=== PATIENT | male | born 1945 | race Caucasian/White ===

== ENCOUNTER 2017-02-26 10:16 | Emergency (ER) | payer MEDICARE, OTHER ==
[2017-02-26 10:24] VITALS: BP 121/75; PULSE 50; RESP 18; TEMP 97.7
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
[2017-02-28 11:51] LABS: Lyme IgG/IgM 0.6 Index; Lyme IgG/IgM Interp NEGATIVE (NEGATIVE)
== END 2017-02-26 11:00 | disposition home or self-care (01) ==
LOC: EC 10:16
DX: S30.861A Insect bite (nonvenomous) of abdominal wall, initial encounter (principal); S80.869A Insect bite (nonvenomous), unspecified lower leg, initial encounter; I25.10 Atherosclerotic heart disease of native coronary artery without angina pectoris; E78.5 Hyperlipidemia, unspecified; I10 Essential (primary) hypertension; Z86.718 Personal history of other venous thrombosis and embolism; Z88.5 Allergy status to narcotic agent; Z79.82 Long term (current) use of aspirin; Z79.899 Other long term (current) drug therapy; Z87.891 Personal history of nicotine dependence; W57.XXXA Bitten or stung by nonvenomous insect and other nonvenomous arthropods, initial encounter
CPT/HCPCS: 36415; 86618; 99283

== ENCOUNTER → 2017-12-28 | Outpatient (CLI) | payer MEDICARE, OTHER ==
--- NOTE | 2017-12-28 14:56 | CONS ---
CONSULTATION DATE OF SERVICE: 12/28/2017 A 72-year-old gentleman who has been evaluated in the Sleep Center for possible obstructive sleep apnea-hypopnea syndrome. HISTORY OF PRESENT ILLNESS/SLEEP WAKE EVALUATION: Patient usually goes to bed late around 2 a.m. and sleeps until around 10 a.m. No problems with falling asleep, although he has TV set in bedroom. He usually sleeps on the side position. According to his . He has loud snoring and witnessed episodes of stopped breathing for more than 10 years. He wakes up from sleep several times with 2 episodes of nocturia. In the morning he wakes up tired, sometimes feels sleepiness. [place] Sleepiness Scale is 5, but he takes naps up to 3 times per day at 1 pm, 4 pm at around 8 pm. PAST MEDICAL HISTORY: Positive for hypertension, episodes of anxiety, coronary artery disease, hyperlipidemia, epilepsy, last episodes of grand mal seizures about 7 years ago after sclerosis of the femoral arteries. PAST SURGICAL HISTORY: Three stent insertions to the heart, stent insertion to renal artery, hernia repair, several surgeries for arteriosclerosis of femoral artery, bypass surgery to move the femoral artery of both legs. MEDICATIONS: Alprazolam, aspirin, atenolol, atorvastatin, clopidogrel, colchicine, doxazosin, nitroglycerin, pantoprazole, paroxetine, , sildenafil, if necessary. SOCIAL HISTORY: Positive for smoking for about 40-pack years, quit about 14 years ago. Alcohol consumption none at the present time. REVIEW OF SYSTEMS: Awakenings from sleep, sleepiness during the day. PHYSICAL EXAM: gentleman without distress. BP 128/74, HR 52, RR 16, height 5, 6-3/4 inches, weight 194.2, BMI of 30.6, temperature 97.7, oxygen saturation room air 95%. OROPHARYNX: Moderately low position of soft palate in short distance between soft palate and posterior pharyngeal wall. Neck 16 inches in circumference. ABDOMEN: Slightly obese. Neck Supple, no JVD. Thyroid is not palpable. LUNGS Clear to percussion and to auscultation. Good air exchange. No wheezing or rhonchi. HEART S1, S2 regular. No murmurs, gallops, or rubs. EXTREMITIES No clubbing or cyanosis. 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 Cranial nerves 2 to 7 intact. There is no fasciculation or atrophy. noted. No focal deficits observed. IMPRESSION: 1. Snoring, witnessed episodes of stopped breathing during the sleep, multiple awakenings from sleep, sleepiness during the day. Patient takes 3 or 4 naps a day. Wide neck, obstructive sleep apnea-hypopnea syndrome. 2. Mild obesity, body mass index of 30.6. 3. \Coronary artery disease, status post several stent insertions. 4. Arthrosclerosis of femoral arteries, status post bypass surgeries and several surgeries on femoral arteries. 5. Hypertension. 6. Hyperlipidemia. 7. Anxiety. 8. History of epilepsy with grand mal seizures, last episode 7 years ago. 9. Gout. 10.Benign prostatic hypertrophy. 11.History of chronic glomerulonephritis. PLAN: 1. Polysomnography for evaluation of patient's breathing during sleep. 2. CPAP/BiPAP titration if sleep study confirms obstructive sleep apnea-hypopnea syndrome. 3. Preferable position during sleep on the side. 4. No driving if patient feels any sleepiness. 5. I will see patient for follow up visit to explain results of testing and following plan. Thank you very much for referring this patient for consultation. Sincerely, Ti Linder MD, PhD, FAASM Diplomat of [employer] Lead Painter of [facility] [place] MMODL / GERIN: [id number] /
== END | disposition home or self-care (01) ==
LOC: SLEEP 11:20
PROVIDERS: ATTEND Internal Medicine
DX: G47.33 Obstructive sleep apnea (adult) (pediatric) (principal); E66.9 Obesity, unspecified; I25.10 Atherosclerotic heart disease of native coronary artery without angina pectoris; I70.219 Atherosclerosis of native arteries of extremities with intermittent claudication, unspecified extremity; I10 Essential (primary) hypertension; E78.5 Hyperlipidemia, unspecified; F41.9 Anxiety disorder, unspecified; M10.9 Gout, unspecified; N40.0 Benign prostatic hyperplasia without lower urinary tract symptoms; N03.9 Chronic nephritic syndrome with unspecified morphologic changes; Z68.30 Body mass index [BMI] 30.0-30.9, adult; Z95.1 Presence of aortocoronary bypass graft; Z86.69 Personal history of other diseases of the nervous system and sense organs; Z95.5 Presence of coronary angioplasty implant and graft; Z79.82 Long term (current) use of aspirin; Z79.02 Long term (current) use of antithrombotics/antiplatelets; Z79.899 Other long term (current) drug therapy; Z87.891 Personal history of nicotine dependence
CPT/HCPCS: 99211

== ENCOUNTER → 2018-04-12 | Outpatient (CLI) | payer MEDICARE, OTHER ==
--- NOTE | 2018-04-12 12:46 | SFUN ---
SLEEP CENTER FOLLOW UP NOTE DATE OF SERVICE: 04/12/2018 A 73-year-old gentleman who had been followed in sleep center to discuss results of polysomnogram and following plan. We discussed results of the sleep study with the patient in details. Sleep study did not show any significant respiratory abnormalities during the sleep. Total apnea- hypopnea index is 3.2, which is in normal range. Total oxygen level was below normal for 1.8 minutes, which is also considered to be in normal range. EMG showed 97.3 periodic limb movements per hour with 6.2 microarousals per hour. According to the patient's , he has significant amount of leg movements at home while he is asleep. [place] Sleepiness Scale today is 8. MEDICATIONS: Xanax, aspirin, atenolol, Lipitor, Plavix, colchicine, Cardura, [place], Nitrostat, Protonix, Paxil, Dilantin . PHYSICAL EXAMINATION: During physical exam, patient in no distress. VITAL SIGNS: BP 138/87, HR 60, RR 16, weight 184.6, temperature 99.1, oxygen saturation room air 95%. NECK: Supple, no JVD. Thyroid is not palpable. LUNGS: Clear to percussion and to auscultation. Good air exchange. No wheezing or rhonchi. HEART: S1, S2 regular. No murmurs, gallops, or rubs. ABDOMEN: Soft and nontender. Bowel sounds are present. No organomegaly appreciated. EXTREMITIES: No clubbing or cyanosis. HAIR WEAVER: Awake, alert, and oriented X3. Cranial nerves 2 to 7 intact. There is no fasciculation or atrophy. noted. No focal deficits observed. IMPRESSION: 1. No significant respiratory abnormalities during the sleep study. 2. Severe periodic limb movements have been documented. 3. Atherosclerosis of femoral artery, status post bypass surgery. 4. Coronary artery disease, status post stent insertion. 5. Hyperlipidemia. 6. Hypertension. 7. History of anxiety. 8. History of epilepsy with grand mal seizures, last episode 7 years ago. 9. History of gout. 10.Benign prostatic hypertrophy. 11.History of chronic glomerulonephritis. PLAN: 1. Please check iron profile with ferritin level. Low level of iron increases risk for periodic limb movements. 2. The patient will start taking Mirapex 0.125 mg 1 or 2 tablets at bedtime with a goal to prevent periodic limb movements. 3. No driving if feeling any sleepiness. 4. Preferable position during the sleep on the side. Thank you very much for allowing me to participate in management of your patient. Sincerely, Ti Linder MD, PhD, FAASM Diplomat of [employer] Process Mechanic of [facility] [place] MMODL / IJN: [id number] /
== END ==
LOC: SLEEP 11:30
PROVIDERS: ATTEND Internal Medicine
DX: G47.61 Periodic limb movement disorder (principal); I70.8 Atherosclerosis of other arteries; I25.10 Atherosclerotic heart disease of native coronary artery without angina pectoris; Z95.5 Presence of coronary angioplasty implant and graft; E78.5 Hyperlipidemia, unspecified; I10 Essential (primary) hypertension; F41.9 Anxiety disorder, unspecified; R56.9 Unspecified convulsions; G40.909 Epilepsy, unspecified, not intractable, without status epilepticus; M10.9 Gout, unspecified; N40.0 Benign prostatic hyperplasia without lower urinary tract symptoms; N05.9 Unspecified nephritic syndrome with unspecified morphologic changes; Z79.899 Other long term (current) drug therapy; Z79.82 Long term (current) use of aspirin; Z79.891 Long term (current) use of opiate analgesic

== ENCOUNTER → 2019-03-05 | Outpatient (CLI) | payer MEDICARE, OTHER ==
--- NOTE | 2019-03-05 15:28 | XR ---
EXAM TYPE: LUMBAR SPINE X RAY SERIES COMPARISON: NONE HISTORY: Pain TECHNIQUE: 3 views are submitted. FINDINGS: Alignment is anatomic. The pedicles are intact. The transverse processes are intact. There is no s pondylolysis or spondylolisthesis. There is a vascular stent which may be within the renal artery ov erlying the L1-L2 disc interspace correlate clinically. Atherosclerotic changes seen. Hypertrophic an d degenerative change of the spine. IMPRESSION: 1. Multilevel degenerative disc disease and hypertrophic changes. 2. Correlate for history of vascular stent..
== END | disposition home or self-care (01) ==
LOC: RADXRMAIN 14:48
PROVIDERS: ATTEND Internal Medicine Geriatric Medicine
DX: M51.36 Other intervertebral disc degeneration, lumbar region (principal)
CPT/HCPCS: 72100

== ENCOUNTER 2020-06-08 12:31 | Inpatient (IN) | payer OTHER, MEDICARE ==
[2020-06-08] MEDS ORDERED: SODIUM CHLORIDE 0.9% 1,000 ML IV STA (12:38)
[2020-06-08] MEDS ORDERED: HYDROmorphone 0.5 MG/0.5 ML SYRINGE IVP STA (12:38)
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
--- NOTE | 2020-06-08 12:57 | XR ---
AP pelvis HISTORY: Trauma and pain Single frontal view of the pelvis Metallic density and clips in the right, clips present in the left groin. Dense atherosclerotic calci fications are present. Bone mineralization, joint spaces and alignment are maintained. Degenerative d isc changes are present in the visualized lumbar spine. IMPRESSION: No fracture or dislocation.
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
[2020-06-08 13:06] LABS: Basophils % (A) 1 %; Eosinophils # (A) 0.1 k/uL (0-0.7); Eosinophils % (A) 2 %; HCT 44.9 % (39.0-53.0); HGB 15.2 gm/dL (13.0-17.5); Lymphocytes # (A) 1.8 k/uL (1.0-4.8); Lymphocytes % (A) 28 %; MCH 33.4 pg (25.0-35.0); MCV 98.1 fL (80.0-100.0); Mean Platelet Volume 6.9; Monocytes # (A) 0.3 k/uL (0-1.0); Monocytes % (A) 5 %; Neutrophils # (A) 4.1 k/uL (1.3-7.7); Neutrophils % (A) 63 %; Platelet Count 118 k/uL (150-450); RBC 4.57 m/uL (4.30-5.90); RDW 13.2 % (11.5-15.5); WBC 6.6 k/uL (3.8-10.6)
[2020-06-08 13:17] LABS: ALT 38 U/L (4-49); AST 48 U/L (17-59); African American GFR (CKD) 49 (>60 ml/min/1.73 sqM); Albumin 4.8 g/dL (3.5-5.0); Alcohol <10 mg/dL; Alkaline Phosphatase 88 U/L (38-126); Anion Gap 10 mmol/L; Blood Urea Nitrogen 17 mg/dL (9-20); Calcium 9.5 mg/dL (8.4-10.2); Carbon Dioxide 21 mmol/L (22-30); Chloride 106 mmol/L (98-107); Glucose 118 mg/dL (74-99); Non-African American GFR(CKD) 42 (>60 ml/min/1.73 sqM); Potassium 4.2 mmol/L (3.5-5.1); Sodium 137 mmol/L (137-145); Total Bilirubin 1.3 mg/dL (0.2-1.3); Total Protein 7.6 g/dL (6.3-8.2)
[2020-06-08 13:23] LABS: Prothrombin Time 10.1 sec (9.0-12.0)
[2020-06-08 13:24] LABS: Partial Thromboplastin Time 18.2 sec (22.0-30.0)
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
[2020-06-08] MEDS ORDERED: NALOXONE 0.4 MG/ML 1 ML VIAL IV PRN (14:21)
[2020-06-08] MEDS ORDERED: BACLOFEN 10 MG TAB PO PRN (18:47)
[2020-06-08] MEDS: HYDROcodone/APAP 5-325MG 1 EACH TAB PO PRN (19:27)
[2020-06-08] MEDS: ATORVASTATIN 40 MG TAB PO SCH (19:30)
[2020-06-08] MEDS: DOXAZOSIN 2 MG TAB PO SCH (19:31)
[2020-06-08] MEDS: PANTOPRAZOLE 40 MG TABLET PO SCH (20:03)
[2020-06-08] MEDS: levETIRAcetam 500 MG TAB PO SCH (20:03)
[2020-06-09] MEDS: HYDROcodone/APAP 5-325MG 1 EACH TAB PO PRN ×2 (06:22→16:24)
[2020-06-09] MEDS: PANTOPRAZOLE 40 MG TABLET PO SCH (07:28)
[2020-06-09] MEDS ORDERED: PANTOPRAZOLE 40 MG TABLET PO SCH (07:30)
[2020-06-09] MEDS: ASPIRIN 81 MG PO SCH (08:48)
[2020-06-09] MEDS: atenoloL 25 MG TAB PO SCH (08:48)
[2020-06-09] MEDS: PARoxetine 20 MG TAB PO SCH (08:48)
[2020-06-09] MEDS: levETIRAcetam 500 MG TAB PO SCH ×2 (08:48→21:04)
[2020-06-09] MEDS: allopurinoL 100 MG TAB PO SCH (08:48)
[2020-06-09] MEDS ORDERED: ERGOCALCIFEROL 50,000 UNIT CAP PO SCH (09:00)
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
--- NOTE | 2020-06-09 09:46 | US ---
EXAMINATION TYPE: US carotid duplex BILAT DATE OF EXAM: 06/09/2020 COMPARISON: NONE CLINICAL HISTORY: syncope. Patient states passing out. HTN. No hx TIA. EXAM MEASUREMENTS: RIGHT: Peak Systolic Velocity (PSV) cm/sec ----- Right CCA: 46.2 ----- Right ICA: 62.5 ----- Right ECA: 92.4 ICA/CCA ratio: 1.4 RIGHT: End Diastole cm/sec ----- Right CCA: 13.9 ----- Right ICA: 23.0 ----- Right ECA: 8.4 LEFT: Peak Systolic Velocity (PSV) cm/sec ----- Left CCA: 40.5 ----- Left ICA: 108.1 ----- Left ECA: 96.9 ICA/CCA ratio: 2.7 LEFT: End Diastole cm/sec ----- Left CCA: 9.2 ----- Left ICA: 33.8 ----- Left ECA: 16.7 VERTEBRALS (direction of flow): Right Vertebral: Antegrade Left Vertebral: Antegrade Rhythm: Normal Wall thickening. Plaque visualized in bilateral bulb, ICA and ECA. IMPRESSION: 1. Left ICA/CCA ratio suggests hemodynamically significant stenosis of 50-69%. 2. No hemodynamically significant stenosis on the right. Any stenosis that may be present is less marlyn n 50%. 3. Atherosclerotic disease bilaterally. Criteria for Assigning % of Stenosis / Diameter reduction (Estimation based on the indirect measurements of the internal carotid artery velocities (ICA PSV). 1. Normal (no stenosis)=ICA PSV < 125 cm/s: ratio < 2.0: ICA EDV<40 cm/s. 2. Less than 50% stenosis=ICA PSV < 125 cm/s: ratio < 2.0: ICA EDV<40 cm/s. 3. 50 to 69% stenosis=ICA PSV of 125 to 230 cm/s: ration 2.0 ? 4.0: ICA EDV 40-100 cm/s. 4. Greater than 70% stenosis to near occlusion= ICA PSV > 230 cm/s: ratio > 4.0: ICA EDV > 100 cm/s. 5. Near occlusion= ICA PSV velocities may be low or undetectable: variable ratio and ICA EDV. 6. Total occlusion=unable to detect flow.
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
--- NOTE | 2020-06-09 12:00 | ECHOF ---
Referral Reason:LVF MEASUREMENTS -------- HEIGHT: 172.7 cm WEIGHT: 81.6 kg BP: IVSd: 1.2 cm (0.6 - 1.1) LVIDd: 4.3 cm (3.9 - 5.3) LVPWd: 1.4 cm (0.6 - 1.1) IVSs: 1.8 cm LVIDs: 2.7 cm LVPWs: 1.6 cm LAESV Index (A-L): 10.33 ml/m Ao Diam: 3.2 cm (2.0 - 3.7) AV Cusp: 1.8 cm (1.5 - 2.6) LA Diam: 2.9 cm (2.7 - 3.8) MV EXCURSION: 17.007 mm (> 18.000) MV EF SLOPE: 57 mm/s (70 - 150) EPSS: 1.2 cm MV E Rangel: 0.65 m/s MV DecT: 220 ms MV A Rangel: 0.75 m/s MV E/A Ratio: 0.86 RAP: 5.00 mmHg RVSP: 13.29 mmHg FINDINGS -------- This was a technically good study. The left ventricular size is normal. There is mild concentric left ventricular hypertrophy. Overa ll left ventricular systolic function is normal with, an EF between 55 - 60 %. The diastolic fillin g pattern is normal for the age of the patient 13.. The right ventricle is normal in size. The left atrial size is normal. The right atrial size is normal. The aortic valve is trileaflet and appears structurally normal. The mitral valve is normal. The mitral valve leaflets are mildly thickened. Mild mitral annular c alcification present. The tricuspid valve appears structurally normal. Mild tricuspid regurgitation present. Right vent ricular systolic pressure is normal at < 35 mmHg. There is no pulmonic regurgitation present. The aortic root size is normal. Normal inferior vena cava with normal inspiratory collapse consistent with estimated right atrial pre ssure of 5 mmHg. There is no pericardial effusion. CONCLUSIONS -------- 1. The left ventricular size is normal. 2. There is mild concentric left ventricular hypertrophy. 3. Overall left ventricular systolic function is normal with, an EF between 55 - 60 %. 4. The diastolic filling pattern is normal for the [age] of the patient 13.94 5. The mitral valve leaflets are mildly thickened. 6. Mild mitral annular calcification present. 7. Mild tricuspid regurgitation present. 8. There is no pericardial effusion. SUPERVISOR [employer]ABRICATION AND [employer]SEMBLY: Maria Eugenia Daily RDCS
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
--- NOTE | 2020-06-09 14:04 | P.PAINCN ---
History of Present Illness - Reason for Consult Consult date: 06/09/20 - History of Present Illness this is 75 years old male,was admitted to [facility] after he fell off the ladder,and patient had right side Rib fracture,and patient was complaining of severe chest wall pain, chest x-ray and CAT scan of the chest showed that he had right-sided seventh rib fractures, but there is no evidence of hemothorax patient was complaining of severe chest pain and he was started on [place] Lancey 5/325 every 6 hours when necessary Past Medical History Past Medical History: Coronary Artery Disease (CAD), Deep Vein Thrombosis (DVT), Hyperlipidemia, Hypertension, Renal Disease, Seizure Disorder Additional Past Medical History / Comment(s): PAD History of Any Multi-Drug Resistant Organisms: None Reported Past Surgical History: Appendectomy, Heart Catheterization With Stent, Joint Replacement, Orthopedic Surgery Additional Past Surgical History / Comment(s): kidney stents, fem-popx2, hydrocele surgery Past Anesthesia/Blood Transfusion Reactions: No Reported Reaction Date of Last Stent Placement:: 2012 Past Psychological History: No Psychological Hx Reported Smoking Status: Never smoker Past Alcohol Use History: Occasional Past Drug Use History: None Reported Medications and Allergies Home Medications Medication Instructions Recorded Confirmed Type Aspirin 81 mg PO DAILY 01/14/15 06/08/20 History Doxazosin [Cardura] 2 mg PO HS 01/14/15 06/08/20 History Hydrocodone/Acetaminophen [De Lancey 1 tab PO BID PRN 01/14/15 06/08/20 History 5-325] Pantoprazole Sodium 20 mg PO DAILY 01/14/15 06/08/20 History atenoloL [Tenormin] 25 mg PO DAILY 01/14/15 06/08/20 History allopurinoL [Zyloprim] 100 mg PO DAILY 09/08/15 06/08/20 History Atorvastatin [Lipitor] 40 mg PO HS 06/08/20 06/08/20 History Baclofen 10 mg PO BID PRN 06/08/20 06/08/20 History Ergocalciferol [Vitamin D2] 50,000 unit PO Q7D 06/08/20 06/08/20 History PARoxetine HCL [Paxil] 20 mg PO DAILY 06/08/20 06/08/20 History Sildenafil Citrate 100 mg PO DAILY PRN 06/08/20 06/08/20 History levETIRAcetam [Keppra] 500 mg PO BID 06/08/20 06/08/20 History Allergies Allergy/AdvReac Type Severity Reaction Status Date / Time meperidine HCl [From Demerol] AdvReac Nausea & Verified 06/09/20 00:29 Vomiting Physical Exam Vitals: Vital Signs Temp Pulse Pulse Pulse Pulse Pulse Resp 06/09/20 12:10 50 L 62 51 L 18 06/09/20 09:00 96.3 F L 92 19 06/09/20 08:09 06/09/20 03:00 98.5 F 104 H 18 06/08/20 21:00 98.3 F 115 H 17 06/08/20 16:35 98.3 F 116 H 18 06/08/20 15:45 98.6 F 72 18 06/08/20 15:00 98.3 F 116 H 18 BP BP BP BP BP Pulse Ox 06/09/20 12:10 125/76 101/68 130/72 06/09/20 09:00 120/74 92 L 06/09/20 08:09 95 06/09/20 03:00 128/86 94 L 06/08/20 21:00 136/91 95 06/08/20 16:35 157/94 94 L 06/08/20 15:45 128/92 98 06/08/20 15:00 157/94 94 L Intake and Output 06/08/20 06/09/20 06/09/20 22:59 06:59 14:59 Intake Total 700 Output Total 1650 Balance 700 -1650 Intake: Intake, IV Titration 100 Amount Sodium Chloride 0.9% 1, 100 000 ml @ 100 mls/hr IV . Q10H STA Rx#:[id number] Oral 600 Output: Urine 1650 Other: Voiding Method Urinal Urinal # Voids 1 1 Weight 81.647 kg Physical Examinations : -Constitutiona : Cooperative , not in acute distress . -HEENT : nech : supple , no Lymphadenopathy , normal thyroid size . : eyes : no ptosis , no icterus, no photophobia . : ENT : normal of hearing , normal oropharynx , no Thrush . - Respiratory : Chest clear to auscultations Bilaterally , no wheezing , no Rhonchi . tenderness over the right side of the chest - Cardiovascula : regular rate and rhythem , S1 , S2 , no S3 , no S4. - Gastrointestina : abdomen soft no tenderness , bowel sounds , no organomegally . - Genitourinary : Defferred . - neurologic : Cranial nerve II to XII intact , no focal neurological deffecit . -psychatric : alert , oriented X 3 , appropriate affect , intact judgment and insight . -Lymphatic : no Lymphadenopathy . - musculoskeltal : Lumber spine moter stegnth lower extremities ,thigh and legs 5/5 Right side , 5/5 Left side Results CBC & Chem 7: 06/08/20 12:51 06/08/20 12:51 Comments: diagnostic study review Assessment and Plan Assessment: assessment and plan=[id number] chest wall pain secondary to right side 7th rib fracture ,she is currently on [place] Lancey 5/325-6 hours when necessary ,and he reported current medication helping him to control his pain, s able to take deep breaths without any issues, he denies any shortness of breath, he denies any difficulty breathing Recommend continue current management and there is no need for thoracic pidural catheter placement, patient doing very well on the current treatment Time with Patient: Less than 30 PQRS Measure Charge Sheet PQRS Narrative: Smoking Status Former smoker Do You Want the Pneumonia Vaccine Up to Date Vaccine AT THIS TIME? Blood Pressure [Standing] 101/68 Blood Pressure [Sitting] 125/76 Blood Pressure [Supine] 130/72 Blood Pressure [Left Arm] 120/74 Blood Pressure 128/92 Pain Intensity [Right 4 Posterior Chest] Pain Intensity 0 Pain Scale Used Numeric (1 - 10) Scale Used Numeric (1 - 10) Home Medications: Ambulatory Orders Aspirin 81 mg PO DAILY 01/14/15 Doxazosin [Cardura] 2 mg PO HS 01/14/15 Hydrocodone/Acetaminophen [[place]y 5-325] 1 tab PO BID PRN 01/14/15 Pantoprazole Sodium 20 mg PO DAILY 01/14/15 atenoloL [Tenormin] 25 mg PO DAILY 01/14/15 allopurinoL [Zyloprim] 100 mg PO DAILY 09/08/15 Atorvastatin [Lipitor] 40 mg PO HS 06/08/20 Baclofen 10 mg PO BID PRN 06/08/20 Ergocalciferol [Vitamin D2] 50,000 unit PO Q7D 06/08/20 PARoxetine HCL [Paxil] 20 mg PO DAILY 06/08/20 Sildenafil Citrate 100 mg PO DAILY PRN 06/08/20 levETIRAcetam [Keppra] 500 mg PO BID 06/08/20
--- NOTE | 2020-06-09 14:23 | XR ---
EXAMINATION TYPE: XR shoulder complete RT DATE OF EXAM: 06/09/2020 CLINICAL HISTORY: Pain status post fall injury yesterday TECHNIQUE: Three views of the right shoulder are obtained. COMPARISON: None. FINDINGS: There is no acute fracture/dislocation evident in the right shoulder. Mild narrowing and s purring at acromioclavicular joint with moderate capsular hypertrophy. Distal acromion morphology un remarkable. Mild/moderate narrowing of glenohumeral joint. The visualized ribs are intact and unremar kable. IMPRESSION: There is no acute fracture or dislocation in the right shoulder.
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
[2020-06-09] MEDS: ATORVASTATIN 40 MG TAB PO SCH (21:04)
[2020-06-09] MEDS: DOXAZOSIN 2 MG TAB PO SCH (21:08)
[2020-06-10] MEDS: HYDROcodone/APAP 5-325MG 1 EACH TAB PO PRN ×2 (02:17→08:17)
[2020-06-10] MEDS: PANTOPRAZOLE 40 MG TABLET PO SCH (07:29)
[2020-06-10] MEDS: atenoloL 25 MG TAB PO SCH (07:29)
[2020-06-10] MEDS: allopurinoL 100 MG TAB PO SCH (07:29)
[2020-06-10] MEDS: ASPIRIN 81 MG PO SCH (07:29)
[2020-06-10] MEDS: levETIRAcetam 500 MG TAB PO SCH (07:29)
[2020-06-10] MEDS: PARoxetine 20 MG TAB PO SCH (07:30)
[2020-06-10 08:29] VITALS: BP 149/70; PULSE 57; RESP 14; TEMP 98
[2020-06-10 08:34] LABS: Basophils # (A) 0.1 k/uL (0-0.2); Basophils % (A) 1 %; Eosinophils # (A) 0.2 k/uL (0-0.7); Eosinophils % (A) 3 %; HCT 43.5 % (39.0-53.0); HGB 14.8 gm/dL (13.0-17.5); Lymphocytes # (A) 2.9 k/uL (1.0-4.8); Lymphocytes % (A) 35 %; MCH 33.8 pg (25.0-35.0); MCHC 34.1 g/dL (31.0-37.0); MCV 99.3 fL (80.0-100.0); Monocytes # (A) 0.5 k/uL (0-1.0); Monocytes % (A) 6 %; Neutrophils # (A) 4.6 k/uL (1.3-7.7); Neutrophils % (A) 54 %; Platelet Count 116 k/uL (150-450); RBC 4.38 m/uL (4.30-5.90); RDW 12.7 % (11.5-15.5); WBC 8.5 k/uL (3.8-10.6)
[2020-06-10 08:49] LABS: Calcium 8.9 mg/dL (8.4-10.2); Potassium 3.8 mmol/L (3.5-5.1)
[2020-06-10] MEDS ORDERED: SENNOSIDES-DOCUSATE SODIUM 1 EACH TAB PO SCH (10:00)
[2020-06-10] MEDS ORDERED: ACETAMINOPHEN TAB 325 MG TAB PO PRN (10:00)
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
== END 2020-06-10 14:02 | disposition home or self-care (01) | DRG 101 ==
LOC: EC 12:31 → 1SOBS 14:21 → OBSVTOIN 06-10 09:35
PROVIDERS: ADMIT Surgery; ATTEND Surgery
DX: G40.909 Epilepsy, unspecified, not intractable, without status epilepticus (principal); F33.9 Major depressive disorder, recurrent, unspecified; J98.11 Atelectasis; N17.9 Acute kidney failure, unspecified; S22.31XA Fracture of one rib, right side, initial encounter for closed fracture; N18.30 Chronic kidney disease, stage 3 unspecified; I95.1 Orthostatic hypotension; I73.9 Peripheral vascular disease, unspecified; E78.5 Hyperlipidemia, unspecified; G89.29 Other chronic pain; I12.9 Hypertensive chronic kidney disease with stage 1 through stage 4 chronic kidney disease, or unspecified chronic kidney disease; I25.10 Atherosclerotic heart disease of native coronary artery without angina pectoris; I65.23 Occlusion and stenosis of bilateral carotid arteries; K44.9 Diaphragmatic hernia without obstruction or gangrene; M1A.9XX0 Chronic gout, unspecified, without tophus (tophi); N40.0 Benign prostatic hyperplasia without lower urinary tract symptoms; M25.511 Pain in right shoulder; M54.9 Dorsalgia, unspecified; N28.1 Cyst of kidney, acquired; I08.1 Rheumatic disorders of both mitral and tricuspid valves; D35.01 Benign neoplasm of right adrenal gland; Z79.82 Long term (current) use of aspirin; Z79.52 Long term (current) use of systemic steroids; Z88.5 Allergy status to narcotic agent; Z95.5 Presence of coronary angioplasty implant and graft; Z87.891 Personal history of nicotine dependence; Z79.899 Other long term (current) drug therapy; Z96.60 Presence of unspecified orthopedic joint implant; Z86.718 Personal history of other venous thrombosis and embolism; Z98.890 Other specified postprocedural states; Z87.448 Personal history of other diseases of urinary system; Z87.898 Personal history of other specified conditions; Z90.49 Acquired absence of other specified parts of digestive tract; Z87.19 Personal history of other diseases of the digestive system; Z80.1 Family history of malignant neoplasm of trachea, bronchus and lung; W11.XXXA Fall on and from ladder, initial encounter; V49.88XA Car occupant (driver) (passenger) injured in other specified transport accidents, initial encounter; Y92.410 Unspecified street and highway as the place of occurrence of the external cause
CPT/HCPCS: 70450; 71045; 71046; 71260; 72125; 72170; 74177; 80048; 80053; 80320; 83525; 84484; 84681; 85025; 85610; 85730; 86850; 86900; 86901; 93005; 93306; 93880; 94760; 95819; 96361; 96374; 99285

== ENCOUNTER → 2021-09-08 | Outpatient (CLI) | payer MEDICARE, OTHER ==
[~2021-09-08] MED LIST: BAMLANIVIMAB (EUA) 700 MG, ETESEVIMAB (EUA) 1,400 MG in SODIUM CHLORIDE 0.9% 100 ML IVPB ONE; SODIUM CHLORIDE 0.9% 50 ML IVPB NR; SODIUM CHLORIDE 0.9% 500 ML 500 ML in EMPTY BAG 1 BAG IV PRN
[2021-09-08 11:40] VITALS: RESP 16; TEMP 98
[2021-09-08 11:42] VITALS: BP 166/73; PULSE 50
== END ==
LOC: PROCWHC3 08:02
PROVIDERS: ATTEND Internal Medicine Geriatric Medicine
DX: U07.1 COVID-19 (principal); Z87.891 Personal history of nicotine dependence; Z88.5 Allergy status to narcotic agent
CPT/HCPCS: 96360; J3490; M0245

== ENCOUNTER → 2021-10-28 | Outpatient (CLI) | payer MEDICARE, OTHER ==
--- NOTE | 2021-10-29 03:28 | MR ---
EXAMINATION TYPE: MR brain wo con DATE OF EXAM: 10/28/2021 COMPARISON: None HISTORY: Dizziness, memory issues, CVA Multiplanar multi echo imaging of the brain without contrast. There is cerebral cortical atrophy. There is no mass effect or midline shift. There is no evidence of intracranial hemorrhage. Diffusion images show no evidence of an acute infarct. There is some mild n odular increased signal in the periventricular white matter measuring up to 1 cm in thickness. This i s concentrated at the frontal and occipital horns of the lateral ventricles. Brainstem is intact. Cer ebellum is intact. There is no evidence of orbital mass. Corpus callosum is intact. Sella turcica jerrod ears normal. IMPRESSION: Cerebral atrophy. White matter signal changes probably related to age-related atrophy and microvascul ar ischemia. Demyelinating disease not excluded but I think less likely in view of the lack of any si gnificant parietal lobe involvement.
== END | disposition home or self-care (01) ==
LOC: RADMRIMAIN 16:39
PROVIDERS: ATTEND Psychiatry & Neurology Neurology
DX: G31.89 Other specified degenerative diseases of nervous system (principal)
CPT/HCPCS: 70551

== ENCOUNTER → 2022-09-02 | Outpatient (CLI) | payer MEDICARE, OTHER ==
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
== END | disposition home or self-care (01) ==
LOC: RADXRMAIN 15:38
PROVIDERS: ATTEND Internal Medicine Geriatric Medicine
DX: R05.9 Cough, unspecified (principal)
CPT/HCPCS: 71046

== ENCOUNTER → 2023-01-06 | Outpatient (CLI) | payer MEDICARE, OTHER ==
--- NOTE | 2023-01-06 10:50 | XR ---
EXAM TYPE: LUMBAR SPINE X RAY SERIES COMPARISON: NONE HISTORY: Pain TECHNIQUE: 4 views are submitted. FINDINGS: Alignment is anatomic. The pedicles are intact. The transverse processes are intact. There is a va scular stent is noted. A linear density overlying left abdomen similar to prior exam of uncertain brandin ology. Correlate for foreign body. Vascular calcifications are seen. There is hypertrophic and degene rative changes of the spine with facet arthropathy L4-5 and L5-S1. No spondylolisthesis. IMPRESSION: 1. Multilevel mild to moderate degenerative disc disease and facet arthropathy. 2. There is a vascular stent overlying the mid abdomen and there is an additional linear 1 x 2 cm den sity in the left upper quadrant which could be related to chronic metallic foreign body.
== END | disposition home or self-care (01) ==
LOC: RADXRMAIN 09:24
PROVIDERS: ATTEND Internal Medicine Geriatric Medicine
DX: M51.36 Other intervertebral disc degeneration, lumbar region (principal); M47.816 Spondylosis without myelopathy or radiculopathy, lumbar region
CPT/HCPCS: 72100

== ENCOUNTER → 2023-07-21 | Outpatient (CLI) | payer MEDICARE, OTHER ==
--- NOTE | 2023-07-21 12:28 | CTL ---
EXAMINATION TYPE: CT Low Dose Lung DATE OF EXAM ORDERED: 07/21/2023 HISTORY: . Lung cancer screening CT DLP: 101.[address] CTDI: 2.70 mGy Automated exposure control for dose reduction was used. SCREENING VISIT: The patient is skeletally immature. COMPARISON: 06/08/2020. TECHNIQUE: Low dose computed tomography scan was performed through the chest at 1 mm thick sections a nd reconstructed images in multiple planes at 1 mm and [address] DIAGNOSTIC QUALITY: Satisfactory FINDINGS: LUNG NODULES: None. LUNGS: COPD: Severity: None Fibrosis: Severity: Scattered subpleural reticulation may be chronic versus atelectasis. Lymph nodes: Other findings: RIGHT PLEURAL SPACE: Effusion: None Calcification: None Thickening: None Pneumothorax: None LEFT PLEURAL SPACE: Effusion: None Calcification: None Thickening: None Pneumothorax: None HEART: Heart Size: Normal Coronary Calcification: There is moderate vascular calcification throughout the thoracic aorta withou t evidence of aneurysmal dilation. There are severe diffuse coronary artery calcifications. Pericardial Effusion: None OTHER FINDINGS: Upper abdomen: There is a 1.9 cm right adrenal nodule compatible with an adenoma. The visualized uppe r abdomen otherwise appears unremarkable. Bony thorax: None Supraclavicular region: None Other: None IMPRESSION: 1. Negative lung cancer screening examination for significant pulmonary nodules. 2. Severe coronary artery calcifications. CT LUNG RAD AND CT CHEST RECOMMENDATION: Lung-Rad 1 Negative: Continue annual screening with LDCT in 12 months.
== END | disposition home or self-care (01) ==
LOC: RADCTMAIN 11:48
PROVIDERS: ATTEND Internal Medicine Geriatric Medicine
DX: Z12.2 Encounter for screening for malignant neoplasm of respiratory organs (principal); I25.10 Atherosclerotic heart disease of native coronary artery without angina pectoris; Z87.891 Personal history of nicotine dependence
CPT/HCPCS: 71271

== ENCOUNTER 2024-02-14 17:01 | Observation (INO) | payer MEDICARE, OTHER ==
[2024-02-14 18:01] LABS: Basophils % (A) 1 %; Eosinophils # (A) 0.2 k/uL (0-0.7); Eosinophils % (A) 3 %; HCT 39.3 % (39.0-53.0); HGB 13.4 gm/dL (13.0-17.5); Lymphocytes # (A) 1.5 k/uL (1.0-4.8); Lymphocytes % (A) 32 %; MCH 33.3 pg (25.0-35.0); MCHC 34.1 g/dL (31.0-37.0); MCV 97.7 fL (80.0-100.0); Mean Platelet Volume 7.5; Monocytes # (A) 0.3 k/uL (0-1.0); Monocytes % (A) 7 %; Neutrophils # (A) 2.5 k/uL (1.3-7.7); Neutrophils % (A) 54 %; Platelet Count 154 k/uL (150-450); RBC 4.02 m/uL (4.30-5.90); RDW 13.4 % (11.5-15.5); WBC 4.6 k/uL (3.8-10.6)
[2024-02-14 18:04] LABS: ALT 23 U/L (4-49); AST 35 U/L (17-59); African American GFR (CKD) 62 (>60 ml/min/1.73 sqM); Albumin 4.7 g/dL (3.5-5.0); Alkaline Phosphatase 99 U/L (38-126); Anion Gap 8 mmol/L; Blood Urea Nitrogen 17 mg/dL (9-20); Calcium 9.4 mg/dL (8.4-10.2); Carbon Dioxide 23 mmol/L (22-30); Chloride 106 mmol/L (98-107); Glucose 99 mg/dL (74-99); Non-African American GFR(CKD) 54 (>60 ml/min/1.73 sqM); Potassium 3.9 mmol/L (3.5-5.1); Sodium 137 mmol/L (137-145); Total Protein 6.7 g/dL (6.3-8.2)
[2024-02-14 18:10] LABS: Prothrombin Time 10.8 sec (10.0-12.5)
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
[2024-02-14] MEDS ORDERED: ACETAMINOPHEN TAB 325 MG TAB PO PRN (19:57)
[2024-02-14] MEDS ORDERED: NALOXONE 0.4 MG/ML 1 ML VIAL IV PRN (19:57)
--- NOTE | 2024-02-14 19:57 | ED ---
General Adult HPI - General Chief complaint: Syncope Stated complaint: syncope, nausea Time Seen by Provider: 02/14/24 18:11 Source: patient Mode of arrival: wheelchair Limitations: no limitations - History of Present Illness Initial comments: 78-year-old male with past medical history of seizure disorder, hypertension, hyperlipidemia, A-fib on anticoagulation who presents to the emergency department reporting 3 syncopal episodes. Patient had 1 episode at his [id number] houses and 2 episodes in the car. He states that he felt acutely nauseated and then passed out. states he was only out for a couple of seconds. She was driving at that time and had to pack puller the side of the road as he was unresponsive to her. Patient then woke up and was complaining of a headache. Continues to have some nausea Admits chest pain which has subsided but no difficulty breathing. No lateralizing weakness. No speech difficulty. No other alleviating, precipitating or modifying factors - Related Data Home Medications Medication Instructions Recorded Confirmed Aspirin 81 mg PO DAILY 01/14/15 06/08/20 Doxazosin [Cardura] 2 mg PO HS 01/14/15 06/08/20 Hydrocodone/Acetaminophen [[place] 1 tab PO BID PRN 01/14/15 06/08/20 5-325] Pantoprazole Sodium 20 mg PO DAILY 01/14/15 06/08/20 atenoloL [Tenormin] 25 mg PO DAILY 01/14/15 06/08/20 allopurinoL [Zyloprim] 100 mg PO DAILY 09/08/15 06/08/20 Atorvastatin [Lipitor] 40 mg PO HS 06/08/20 06/08/20 Baclofen 10 mg PO BID PRN 06/08/20 06/08/20 Ergocalciferol [Vitamin D2 50,000 unit PO Q7D 06/08/20 06/08/20 (DRISDOL)] PARoxetine HCL [Paxil] 20 mg PO DAILY 06/08/20 06/08/20 Sildenafil Citrate 100 mg PO DAILY PRN 06/08/20 06/08/20 Previous Rx's Medication Instructions Recorded levETIRAcetam [Keppra] 1,000 mg PO Q12HR #120 tab 06/10/20 Allergies Allergy/AdvReac Type Severity Reaction Status Date / Time meperidine HCl [From Demerol] AdvReac Nausea & Verified 02/14/24 17:05 Vomiting Review of Systems ROS Statement: Those systems with pertinent positive or pertinent negative responses have been documented in the HPI. ROS Other: All systems not noted in ROS Statement are negative. Past Medical History Past Medical History: Coronary Artery Disease (CAD), Deep Vein Thrombosis (DVT), Hyperlipidemia, Hypertension, Renal Disease, Seizure Disorder Additional Past Medical History / Comment(s): PAD History of Any Multi-Drug Resistant Organisms: None Reported Past Surgical History: Appendectomy, Heart Catheterization With Stent, Joint Replacement, Orthopedic Surgery Additional Past Surgical History / Comment(s): kidney stents, fem-popx2, hydrocele surgery Past Anesthesia/Blood Transfusion Reactions: No Reported Reaction Date of Last Stent Placement:: 2012 Past Psychological History: No Psychological Hx Reported Smoking Status: Never smoker Past Alcohol Use History: Occasional Past Drug Use History: None Reported General Exam Limitations: no limitations Course Vital Signs 02/14/24 02/14/24 02/14/24 17:02 18:15 19:00 Temperature 97.6 F Pulse Rate 73 66 71 Respiratory 18 17 16 Rate Blood Pressure 141/88 160/97 165/99 O2 Sat by Pulse 97 94 L 98 Oximetry Medical Decision Making - Medical Decision Making Was pt. sent in by a medical professional or institution (, PA, PRINCIPAL STRATEGIST, urgent care, hospital, or intermediate...) When possible be specific @ -[No] Did you speak to anyone other than the patient for history (EMS, parent, family, police, friend...)? What history was obtained from this source @ -[No] Did you review nursing and triage notes (agree or disagree)? Why? @ -[I reviewed and agree with nursing and triage notes] Were old charts reviewed (outside hosp., previous admission, EMS record, old EKG, old radiological studies, urgent care reports/EKG's, intermediate records)? Report findings @ -[No old charts were reviewed] Differential Diagnosis (chest pain, altered mental status, abdominal pain women, abdominal pain men, vaginal bleeding, weakness, fever, dyspnea, syncope, headache, dizziness, GI bleed, back pain, seizure, CVA, palpatations, mental health, musculoskeletal)? @ -[not applicable] EKG interpreted by me (3pts min.). @ -Yes and demonstrates atrial flutter with a rate of 70. QRS 96. QTc of 420. ST depression 2, 3, aVF as well as V4 through V6 X-rays interpreted by me (1pt min.). @ -[None done] CT interpreted by me (1pt min.). @ -[None done] U/S interpreted by me (1pt. min.). @ -[None done] What testing was considered but not performed or refused? (CT, X-rays, U/S, labs)? Why? @ -[None] What meds were considered but not given or refused? Why? @ -[None] Did you discuss the management of the patient with other professionals (professionals i.e. DrAmanda, PA, PRINCIPAL STRATEGIST, lab, RT, psych nurse, social service director, design sales consultant, teacher, loans officer, counter caser)? Give summary @ -[No] Was smoking cessation discussed for >3mins.? @ -[No] Was critical care preformed (if so, how long)? @ -[No] Were there social determinants of health that impacted care today? How? (Jeanette elessness, low income, unemployed, alcoholism, drug addiction, transportation, low edu. Level, literacy, decrease access to med. care, custodial, rehab)? @ -[No] Was there de-escalation of care discussed even if they declined (Discuss DNR or withdrawal of care, Hospice)? DNR status @ -[No] What co-morbidities impacted this encounter? (DM, HTN, Smoking, COPD, CAD, Cancer, CVA, ARF, Chemo, Hep., AIDS, mental health diagnosis, sleep apnea, morbid obesity)? @ -[None] Was patient admitted / discharged? Hospital course, mention meds given and route, prescriptions, significant lab abnormalities, going to OR and other pertinent info. @ -[hospital course] Undiagnosed new problem with uncertain prognosis? @ -[No] Drug Therapy requiring intensive monitoring for toxicity (Heparin, Nitro, Insulin, Cardizem)? @ -[No] Were any procedures done? @ -[No] Diagnosis/symptom? @ -[default] Acute, or Chronic, or Acute on Chronic? @ -[default] Uncomplicated (without systemic symptoms) or Complicated (systemic symptoms)? @ -[default] Side effects of treatment? @ -[No] Exacerbation, Progression, or Severe Exacerbation? @ -[No] Poses a threat to life or bodily function? How? (Chest pain, USA, AL, pneumonia, PE, COPD, DKA, ARF, appy, cholecystitis, CVA, Diverticulitis, Homicidal, Suicidal, threat to staff... and all critical care pts) @ -[No] - Lab Data Result diagrams: 02/14/24 17:43 02/14/24 17:43 Lab Results 02/14/24 02/14/24 02/14/24 Range/Units 17:43 17:43 17:43 WBC 4.6 (3.8-10.6) k/uL RBC 4.02 L (4.30-5.90) m/uL Hgb 13.4 (13.0-17.5) gm/dL Hct 39.3 (39.0-53.0) % MCV 97.7 (80.0-100.0) fL MCH 33.3 (25.0-35.0) pg MCHC 34.1 (31.0-37.0) g/dL RDW 13.4 (11.5-15.5) % Plt Count 154 (150-450) k/uL MPV 7.5 Neutrophils % 54 % Lymphocytes % 32 % Monocytes % 7 % Eosinophils % 3 % Basophils % 1 % Neutrophils # 2.5 (1.3-7.7) k/uL Lymphocytes # 1.5 (1.0-4.8) k/uL Monocytes # 0.3 (0-1.0) k/uL Eosinophils # 0.2 (0-0.7) k/uL Basophils # 0.0 (0-0.2) k/uL PT 10.8 (10.0-12.5) sec INR 1.0 (<1.2) APTT 26.0 (22.0-30.0) sec Sodium 137 (137-145) mmol/L Potassium 3.9 (3.5-5.1) mmol/L Chloride 106 (98-107) mmol/L Carbon Dioxide 23 (22-30) mmol/L Anion Gap 8 mmol/L BUN 17 (9-20) mg/dL Creatinine 1.28 H (0.66-1.25) mg/dL Est GFR (CKD-EPI)AfAm 62 (>60 ml/min/1.73 sqM) Est GFR (CKD-EPI)NonAf 54 (>60 ml/min/1.73 sqM) Glucose 99 (74-99) mg/dL Calcium 9.4 (8.4-10.2) mg/dL Total Bilirubin 1.0 (0.2-1.3) mg/dL AST 35 (17-59) U/L ALT 23 (4-49) U/L Alkaline Phosphatase 99 (38-126) U/L Troponin I (0.000-0.034) ng/mL Total Protein 6.7 (6.3-8.2) g/dL Albumin 4.7 (3.5-5.0) g/dL 02/14/24 Range/Units 17:43 WBC (3.8-10.6) k/uL RBC (4.30-5.90) m/uL Hgb (13.0-17.5) gm/dL Hct (39.0-53.0) % MCV (80.0-100.0) fL MCH (25.0-35.0) pg MCHC (31.0-37.0) g/dL RDW (11.5-15.5) % Plt Count (150-450) k/uL MPV Neutrophils % % Lymphocytes % % Monocytes % % Eosinophils % % Basophils % % Neutrophils # (1.3-7.7) k/uL Lymphocytes # (1.0-4.8) k/uL Monocytes # (0-1.0) k/uL Eosinophils # (0-0.7) k/uL Basophils # (0-0.2) k/uL PT (10.0-12.5) sec INR (<1.2) APTT (22.0-30.0) sec Sodium (137-145) mmol/L Potassium (3.5-5.1) mmol/L Chloride (98-107) mmol/L Carbon Dioxide (22-30) mmol/L Anion Gap mmol/L BUN (9-20) mg/dL Creatinine (0.66-1.25) mg/dL Est GFR (CKD-EPI)AfAm (>60 ml/min/1.73 sqM) Est GFR (CKD-EPI)NonAf (>60 ml/min/1.73 sqM) Glucose (74-99) mg/dL Calcium (8.4-10.2) mg/dL Total Bilirubin (0.2-1.3) mg/dL AST (17-59) U/L ALT (4-49) U/L Alkaline Phosphatase (38-126) U/L Troponin I 0.015 (0.000-0.034) ng/mL Total Protein (6.3-8.2) g/dL Albumin (3.5-5.0) g/dL Disposition Clinical Impression: Syncope, Chest pain, Nausea Disposition: ADMITTED IP TO [facility] Condition: Stable Is patient prescribed a controlled substance at d/c from ED?: No Referrals: Chevy Baez MD [Primary Care Provider] - 1-2 days Time of Disposition: 19:52 Decision to Admit Reason: Admit from EC Decision Date: 02/14/24 Decision Time: 19:52
--- NOTE | 2024-02-14 20:52 | US ---
EXAMINATION TYPE: US carotid duplex BILAT DATE OF EXAM: 02/14/2024 COMPARISON: US 06/09/2020 CLINICAL INDICATION: Male, 78 years old with history of multiple syncopal episodes; Syncope TECHNIQUE: Carotid duplex ultrasound examination. Indirect Doppler criteria was utilized. FINDINGS: EXAM MEASUREMENTS: RIGHT: Peak Systolic Velocity (PSV) cm/sec ----- Right CCA: 54.9 ----- Right ICA: 72.4 ----- Right ECA: 103.4 ICA/CCA ratio: 1.3 RIGHT: End Diastole cm/sec ----- Right CCA: 18.6 ----- Right ICA: 24.1 ----- Right ECA: 12.8 LEFT: Peak Systolic Velocity (PSV) cm/sec ----- Left CCA: 48.8 ----- Left ICA: 87.1 ----- Left ECA: 67.1 ICA/CCA ratio: 1.8 LEFT: End Diastole cm/sec ----- Left CCA: 15.6 ----- Left ICA: 28.9 ----- Left ECA: 7.8 VERTEBRALS (direction of flow): Right Vertebral: Antegrade Left Vertebral: Antegrade Rhythm: Normal PRODUCTION REPRODUCTION MANAGER NOTES: No significant velocity elevations. Plaque seen throughout bilateral CCA, Bulb, IC A, and ECA. Tortuous vessels. IMPRESSION: 1. Moderate calcified eccentric plaque involving the carotid bifurcations and proximal internal carot id arteries bilaterally resulting in mild less than 50% stenosis. [address] enosis a stent peak systolic velocities and ratios. 3. The hemodynamically significant stenosis of the left internal carotid artery seen on the prior niranjan dy is not reproduced on the current study. Criteria for Assigning % of Stenosis / Diameter reduction (Estimation based on the indirect measurements of the internal carotid artery velocities (ICA PSV). 1. Normal (no stenosis)=ICA PSV < 125 cm/s: ratio < 2.0: ICA EDV<40 cm/s. 2. Less than 50% stenosis=ICA PSV < 125 cm/s: ratio < 2.0: ICA EDV<40 cm/s. 3. 50 to 69% stenosis=ICA PSV of 125 to 230 cm/s: ration 2.0 ? 4.0: ICA EDV 40-100 cm/s. 4. Greater than 70% stenosis to near occlusion= ICA PSV > 230 cm/s: ratio > 4.0: ICA EDV > 100 cm/s. 5. Near occlusion= ICA PSV velocities may be low or undetectable: variable ratio and ICA EDV. 6. Total occlusion=unable to detect flow.
[2024-02-14] MEDS: MEMANTINE 10 MG TAB PO SCH (21:58)
[2024-02-14] MEDS: ATORVASTATIN 20 MG TAB PO SCH (21:59)
[2024-02-14] MEDS: PANTOPRAZOLE 40 MG TABLET PO SCH (21:59)
[2024-02-14] MEDS: APIXABAN 2.5 MG TABLET PO SCH (21:59)
[2024-02-14] MEDS: lamoTRIgine 100 MG TAB PO SCH (21:59)
[2024-02-14] MEDS: lisinopriL 10 MG TAB PO SCH (21:59)
[2024-02-14] MEDS: SODIUM CHLORIDE 0.9% 1,000 ML IV SCH (21:59)
[2024-02-14] MEDS: DOXAZOSIN 2 MG TAB PO SCH (22:24)
[2024-02-15] MEDS: HYDROcodone/APAP 5-325MG 1 EACH TAB PO PRN (01:10)
--- NOTE | 2024-02-15 07:40 | P.HPIM ---
History of Present Illness H&P Date: 02/15/24 HISTORY OF PRESENT ILLNESS: 78-year-old office patient with active medical history of coronary artery disease post angioplasty and stent placement many time, history of DVT, history of hypertension, hyperlipidemia, stage III chronic kidney disease, history of seizure disorders with last seizure activity in 2019 hospitalized for but apparently has been having episode on and off and different timing and variation with recent episode and is traveling to [place] had 1 seizure activity in the plane and landed in [place] and never seek any help happen a few months ago. Also patient is known to have peripheral arterial disease with seen Dr. Anderson sports journalist at [place] had multi procedure done on the lower extremity, he developed to have A-fib/a flutter with RVR was started on anticoagulation because of high chance and risk for fall and complication with anticoagulation his hat presser at [facility] decided to do watchman but a year and half ago during the procedure patient developed to have an acute GA ended up going to the [facility] [employer] and had an angioplasty and stent placement and they aborted doing the watchman at that time patient remained on anticoagulation since. The patient also has multiple other problems he does not show up in the office much with the claimed [facility]. Apparently may show up at the emergency department late night 02/14/2024 for 2 syncopal episode patient was seen his [id number] when he felt nauseous and then passed out completely this lasted for few seconds only then was not feeling well decided to go home his was driving him home when he had another episode on the passenger side to become unresponsive and then he woke up and complaining of headache and nausea developed to have slight chest discomfort at the time. 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 Of a flutter at the time. Patient seeing Dr. Hylton neurology on more regular basis and he is on Lamictal 200 mg twice a day for seizure which apparently had a problem previously with Keppra and Dilantin and never stayed on it in the past. REVIEW OF SYSTEMS: CONSTITUTIONAL: Well-developed no acute respiratory distress. EYES: No icterus sclerae, no conjunctivitis. EARS, NOSE, MOUTH, THROAT, and FACE: No sore throat, lymphadenopathy, carotid bruits or deformity. RESPIRATORY: No SOB cough or wheezes. CARDIOVASCULAR: No CP, Palpitation, PND, Orthopnea, or angina. GASTROINTESTINAL: No Abd pain, Nausea or vomiting, no Diarrhea or constipation, No GI Bleed, no distention or masses. GENITOURINARY: Negative for Hematuria or UTI, no kidney stones. INTEGUMENT/BREAST: Negative for any muscular injury with mild osteoarthritis.. HEMATOLOGIC/LYMPHATIC: Negative for bleed or purpura. MUSCULOSKELTAL: Negative for Myalgia or arthralgia. NEURLOGICAL: No LOC, Sz or syncope, blurred vision dizziness or abnormality.. BEHAVIORAL/PSYCH: Negative. ENDOCRINE: Negative. PHYSICAL EXAMINATION: General Appearance: Alert, cooperative, no distress, appears stated age. Neck HEENT: Supple, no lymphadenopathy, no thyroid enlargement, no carotid bruits. Lungs: Clear to auscultation without crackles or wheezes no rhonchi, no deformity. Chest Wall: Chest wall normal expansion with deep inspiration no tenderness and no deformity was found on exam, no costochondral pain or discomfort. Heart: Regular rate and rhythm, S1, S2 normal, no murmur, rub or gallop. Back: Symmetric, no curvature, ROM normal, no CVA tenderness. Abdomen: Soft, non-tender, bowel sounds active all four quadrants, no masses, no organomegaly. Extremities: Extremities normal, atraumatic, no cyanosis or edema. Pulses: 2+ and symmetric. Skin: Skin color, texture, tugor normal, no rashes or lesions. Neurologic: Alert oriented x3 cranial nerves II through XII intact, no motor deficit, no abnormal balance or gait. ASSESSMENT AND PLAN: _Multi syncopal episode: This is most likely related to seizure activity the patient had similar episode in the past it had been as syncopal episode mostly modified none typical tonic-clonic syndrome. EEG will be ordered, patient be seen neurology MRI of the brain carotid ultrasound and other testing to be done also with his history of coronary artery disease post multi angioplasty and stent placement patient to be watched carefully cardiology consultation repeat echocardiogram and eventually patient might benefit from doing a stress test to make sure he is not having any atypical anginal symptoms. _Seizure with possible status seizure: Has been only on Lamictal had seen neurology for a long time and patient claimed had multiple side effects from Keppra or Dilantin in the past. Despite the episode he had in [place] with a se anthony apparently had addressed it with his neurologist but no action was done at the time release should do this time probably running EEG and see as an opinion if we have any other finding with his MRI of the brain. _Atherosclerotic heart disease with multiple angioplasty and stent placement done by his hat presser at [facility] in [place] last 1 was 2 years ago patient claims has not had any chest pain or angina last stress test was over 3 years ago. Repeat echo continue CK with troponin. _A-fib/a flutter with RVR: Did not require any beta-fady but still on anticoagulation, attempt to do Watchman over 2 years ago patient had complication developed heart attack during procedure did not go back to do anymore trial since. _Peripheral arterial disease post femoral-popliteal angioplasty and stent placement on both side has been doing better still have mild vascular claudication on and off he is remaining on Plavix blood pressure has been well- controlled and still on atorvastatin. _Hypertension: Resume lisinopril 10 mg twice a day along with Cardura 2 mg at bedtime. _Anticoagulation: Patient still on Plavix along with Eliquis, his Eliquis been giving for previous history of DVT to my knowledge nonsustained A-fib/a flutter resume Eliquis and continue Plavix for now. _Arrhythmia: His EKG showed? If a flutter does not look like it there is no documentation of A-fib in the past and patient had severe bradycardia on beta- fady to watch little bit more carefully. _Hyperlipidemia: Remain on atorvastatin 20 mg a day. _Benign prostatic hypertrophy: Still on Cardura. _Chronic degenerative disc disease: Patient is not on any narcotic or muscle relaxer using Tylenol on as-needed basis. _Carotid stenosis: Has been much by cardiology and vascular his left internal carotid artery was close to 69 percentile. _Stage IIIa chronic kidney disease: Chronic no change his GFR on testing still at 54. _GI prophylaxis: Patient will be on Pepcid 20 mg daily. _Recurrent gout: Patient is off allopurinol apparently. _DVT prophylaxis: Still on Eliquis. _CODE STATUS: Full code. Admit patient to the inpatient service for more than 2 night stay. Past Medical History Past Medical History: Coronary Artery Disease (CAD), Deep Vein Thrombosis (DVT), Hyperlipidemia, Hypertension, Renal Disease, Seizure Disorder Additional Past Medical History / Comment(s): PAD History of Any Multi-Drug Resistant Organisms: None Reported Past Surgical History: Appendectomy, Heart Catheterization With Stent, Joint Replacement, Orthopedic Surgery Additional Past Surgical History / Comment(s): kidney stents, fem-popx2, hydrocele surgery Past Anesthesia/Blood Transfusion Reactions: No Reported Reaction Date of Last Stent Placement:: 2012 Past Psychological History: No Psychological Hx Reported Smoking Status: Never smoker Past Alcohol Use History: Occasional Past Drug Use History: None Reported Medications and Allergies Home Medications Medication Instructions Recorded Confirmed Type Doxazosin [Cardura] 2 mg PO HS 01/14/15 02/14/24 History allopurinoL [Zyloprim] 100 mg PO DAILY 09/08/15 02/14/24 History PARoxetine HCL [Paxil] 20 mg PO DAILY 06/08/20 02/14/24 History Apixaban [Eliquis] 2.5 mg PO BID 02/14/24 02/14/24 History Atorvastatin [Lipitor] 20 mg PO HS 02/14/24 02/14/24 History Clopidogrel [Plavix] 75 mg PO DAILY 02/14/24 02/14/24 History Donepezil [Aricept] 10 mg PO DAILY 02/14/24 02/14/24 History HYDROcodone/APAP 5-325MG [Chandler 1 tab PO Q6HR PRN 02/14/24 02/14/24 History 5-325] Memantine [Namenda] 10 mg PO BID 02/14/24 02/14/24 History Nitroglycerin Sl Tabs [Nitrostat] 0.4 mg SL Q5M PRN 02/14/24 02/14/24 History Pantoprazole [Protonix] 40 mg PO BID 02/14/24 02/14/24 History lamoTRIgine [LaMICtal] 200 mg PO BID 02/14/24 02/14/24 History lisinopriL [Zestril] 10 mg PO BID 02/14/24 02/14/24 History Allergies Allergy/AdvReac Type Severity Reaction Status Date / Time meperidine HCl [From Demerol] AdvReac Nausea & Verified 02/14/24 17:05 Vomiting Physical Exam Vitals: Vital Signs Temp Pulse Resp BP Pulse Ox 02/15/24 06:05 63 16 105/70 95 02/15/24 03:23 98.1 F 72 16 124/64 95 02/15/24 02:00 53 L 13 123/79 95 02/15/24 01:07 68 17 120/82 95 02/15/24 00:00 71 15 152/90 95 02/14/24 23:00 71 17 163/111 95 02/14/24 22:00 73 17 168/89 97 02/14/24 21:00 81 15 159/137 96 02/14/24 20:00 73 19 165/100 96 02/14/24 19:00 71 16 165/99 98 02/14/24 18:15 66 17 160/97 94 L 02/14/24 17:02 97.6 F 73 18 141/88 97 Intake and Output 02/14/24 02/15/24 02/15/24 22:59 06:59 14:59 Other: Weight 78.471 kg Results CBC & Chem 7: 02/14/24 17:43 02/14/24 17:43 Labs: Abnormal Lab Results - Last 24 Hours (Table) 02/14/24 02/14/24 Range/Units 17:43 17:43 RBC 4.02 L (4.30-5.90) m/uL Creatinine 1.28 H (0.66-1.25) mg/dL
[2024-02-15] MEDS: DONEPEZIL 10 MG TAB PO SCH (10:44)
[2024-02-15] MEDS: CLOPIDOGREL 75 MG TAB PO SCH (10:44)
[2024-02-15] MEDS: allopurinoL 100 MG TAB PO SCH (10:44)
[2024-02-15] MEDS: PARoxetine 20 MG TAB PO SCH (10:44)
--- NOTE | 2024-02-15 12:34 | EEG ---
ELECTROENCEPHALOGRAM REPORT PREAMBLE: This is a 78-year-old male with recurrent syncope. During last one, the patient felt nauseated and then passed out. When he came to, he complained of a headache. CURRENT MEDICATIONS: 1. Eliquis. 2. Lipitor. 3. Plavix. 4. Aricept. 5. Cardura. 6. [place]. 7. Lamictal. 8. Zestril. 9. Namenda. 10.Paxil. EEG FINDINGS: This is a 21-channel digital EEG recorded with video component, utilizing 10/20 international system with referential and bipolar montages. Background consists of moderately well-developed and regulated, predominantly low amplitude 8 hertz alpha activity seen posteriorly in bihemispheric region. Background seems to be very minimally reactive to eye opening and closing. No photic driving response was seen with some flash frequencies. Drowsiness was seen with appearance of bilaterally symmetric theta frequency rhythm. Deeper stages of sleep were not clearly seen. No focal or generalized epileptiform activity was seen. IMPRESSION: This is essentially a normal awake and drowsy EEG. Background was slightly suppressed, which appears nonspecific findings. No focal, lateralized, or epileptiform activity was seen. MMODL / IJN: [id number] /
--- NOTE | 2024-02-15 12:39 | P.CRDCN ---
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 Hylton. Patient gives history that he had 2 episodes where he became confused and had loss of consciousness. He states each episode lasted 15 seconds each. Prior to it, he felt nauseated and may be a little lightheaded. He denies any lightheadedness when he stands. He states he has not had a seizure activity in a couple years. He has been taking all of his medications as directed. Blood pressure 161/107, heart rate 73, pulse ox 96% on room air. Patient is seen today in the emergency center waiting for a bed on the observation unit. EKG: Atrial fibrillation Carotid ultrasound duplex moderate less than 50% stenosis bilaterally. CT of the brain no acute bleed or mass effect. Stable. Small remote lacunar infarct. Laboratory studies: WBC 4.6, hemoglobin 13.4. Electrolytes are normal. Creatinine 1.28. Troponin negative x 3. Home cardiac medications: Eliquis 2.5 mg twice daily, Lipitor 20 mg at bedtime, Plavix 75 mg daily, Cardura 2 mg at bedtime, lisinopril 10 mg twice daily, Nitrostat as needed. Review Of Systems: At the time of my exam: CONSTITUTIONAL: Denies fever or chills. HEENT: Denies blurred vision, vision changes, or eye pain. Denies hemoptysis CARDIOVASCULAR: Denies chest pain. Denies orthopnea. Denies PND. Denies palpitations RESPIRATORY: Denies shortness of breath. GASTROINTESTINAL: Denies abdominal pain. Denies nausea or vomiting. HEMATOLOGIC: Denies bleeding disorders. GENITOURINARY: Denies any blood in urine. SKIN: Denies puritis. Denies rash. Physical examination: Gen: This is a 78-year-old male in no acute distress. VS: reviewed HEENT: Head is atraumatic, normocephalic. Pupils equal, round. Sclerae is anicteric. NECK: Supple. No JVD. LUNGS: Clear to auscultation. No wheezes or rhonchi. No intercostal retractions. HEART: Regular rate and rhythm. No murmur. ABDOMEN: Soft No tenderness. EXTREMITIES: No pedal edema. No calf tenderness. NEUROLOGICAL: Patient is awake, alert and oriented x3. Assessment: Syncopal episode x 2 most likely related to seizure, less likely to be cardiac related History of coronary artery disease status post multiple angioplasties and stent placement History of DVT Hypertension Hyperlipidemia Chronic kidney disease stage III Plan: Resume patient's home cardiac medications No need to obtain echocardiogram Patient is cleared for discharge from cardiology and may follow-up with his primary hemstitching machine operator, Dr. Anderson, in 1 to 2 weeks. Thank you kindly for this consultation. Nurse practitioner note has been reviewed, I agree with documented findings and plan of care. Patient was seen and examined. Past Medical History Past Medical History: Coronary Artery Disease (CAD), Deep Vein Thrombosis (DVT), Hyperlipidemia, Hypertension, Renal Disease, Seizure Disorder Additional Past Medical History / Comment(s): PAD History of Any Multi-Drug Resistant Organisms: None Reported Past Surgical History: Appendectomy, Heart Catheterization With Stent, Joint Replacement, Orthopedic Surgery Additional Past Surgical History / Comment(s): kidney stents, fem-popx2, hydrocele surgery Past Anesthesia/Blood Transfusion Reactions: No Reported Reaction Date of Last Stent Placement:: 2012 Past Psychological History: No Psychological Hx Reported Smoking Status: Never smoker Past Alcohol Use History: Occasional Past Drug Use History: None Reported Medications and Allergies Home Medications Medication Instructions Recorded Confirmed Type Doxazosin [Cardura] 2 mg PO HS 01/14/15 02/14/24 History allopurinoL [Zyloprim] 100 mg PO DAILY 09/08/15 02/14/24 History PARoxetine HCL [Paxil] 20 mg PO DAILY 06/08/20 02/14/24 History Apixaban [Eliquis] 2.5 mg PO BID 02/14/24 02/14/24 History Atorvastatin [Lipitor] 20 mg PO HS 02/14/24 02/14/24 History Clopidogrel [Plavix] 75 mg PO DAILY 02/14/24 02/14/24 History Donepezil [Aricept] 10 mg PO DAILY 02/14/24 02/14/24 History HYDROcodone/APAP 5-325MG [[place] 1 tab PO Q6HR PRN 02/14/24 02/14/24 History 5-325] Memantine [Namenda] 10 mg PO BID 02/14/24 02/14/24 History Nitroglycerin Sl Tabs [Nitrostat] 0.4 mg SL Q5M PRN 02/14/24 02/14/24 History Pantoprazole [Protonix] 40 mg PO BID 02/14/24 02/14/24 History lamoTRIgine [LaMICtal] 200 mg PO BID 02/14/24 02/14/24 History lisinopriL [Zestril] 10 mg PO BID 02/14/24 02/14/24 History Allergies Allergy/AdvReac Type Severity Reaction Status Date / Time meperidine HCl [From Demerol] AdvReac Nausea & Verified 02/14/24 17:05 Vomiting Physical Exam Vitals: Vital Signs Temp Pulse Resp BP Pulse Ox 02/15/24 10:43 64 18 143/90 98 02/15/24 06:05 63 16 105/70 95 02/15/24 03:23 98.1 F 72 16 124/64 95 02/15/24 02:00 53 L 13 123/79 95 02/15/24 01:07 68 17 120/82 95 02/15/24 00:00 71 15 152/90 95 02/14/24 23:00 71 17 163/111 95 02/14/24 22:00 73 17 168/89 97 02/14/24 21:00 81 15 159/137 96 02/14/24 20:00 73 19 165/100 96 02/14/24 19:00 71 16 165/99 98 02/14/24 18:15 66 17 160/97 94 L 02/14/24 17:02 97.6 F 73 18 141/88 97 Intake and Output 02/14/24 02/15/24 02/15/24 22:59 06:59 14:59 Other: Weight 78.471 kg Results 02/14/24 17:43 02/14/24 17:43 Cardiac Enzymes 02/14/24 02/14/24 02/14/24 Range/Units 17:43 17:43 21:12 AST 35 (17-59) U/L Troponin I 0.015 0.018 (0.000-0.034) ng/mL 02/15/24 Range/Units 00:59 AST (17-59) U/L Troponin I 0.029 (0.000-0.034) ng/mL Coagulation 02/14/24 Range/Units 17:43 PT 10.8 (10.0-12.5) sec APTT 26.0 (22.0-30.0) sec CBC 02/14/24 Range/Units 17:43 WBC 4.6 (3.8-10.6) k/uL RBC 4.02 L (4.30-5.90) m/uL Hgb 13.4 (13.0-17.5) gm/dL Hct 39.3 (39.0-53.0) % Plt Count 154 (150-450) k/uL Comprehensive Metabolic Panel 02/14/24 Range/Units 17:43 Sodium 137 (137-145) mmol/L Potassium 3.9 (3.5-5.1) mmol/L Chloride 106 (98-107) mmol/L Carbon Dioxide 23 (22-30) mmol/L BUN 17 (9-20) mg/dL Creatinine 1.28 H (0.66-1.25) mg/dL Glucose 99 (74-99) mg/dL Calcium 9.4 (8.4-10.2) mg/dL AST 35 (17-59) U/L ALT 23 (4-49) U/L Alkaline Phosphatase 99 (38-126) U/L Total Protein 6.7 (6.3-8.2) g/dL Albumin 4.7 (3.5-5.0) g/dL Current Medications Generic Name Dose Route Start Last Admin Trade Name Freq PRN Reason Stop Dose Admin Acetaminophen 650 mg 02/14/24 19:57 Acetaminophen Tab 325 Mg Tab PO Q6HR PRN Mild Pain or Fever > 100.5 Hydrocodone Bitart/Acetaminophen 1 each 02/14/24 21:00 02/15/24 01:10 Hydrocodone/Apap 5-325mg 1 Each Tab PO 1 each Q6HR PRN Administration Pain Allopurinol 100 mg 02/15/24 09:00 02/15/24 10:44 Allopurinol 100 Mg Tab PO 100 mg DAILY SHANNAN Administration Apixaban 2.5 mg 02/14/24 21:00 02/15/24 10:44 Apixaban 2.5 Mg Tablet PO 2.5 mg BID SHANNAN Administration Protocol Atorvastatin Calcium 20 mg 02/14/24 21:00 02/14/24 21:59 Atorvastatin 20 Mg Tab PO 20 mg HS SHANNAN Administration Clopidogrel Bisulfate 75 mg 02/15/24 09:00 02/15/24 10:44 Clopidogrel 75 Mg Tab PO 75 mg DAILY SHANNAN Administration Donepezil HCl 10 mg 02/15/24 09:00 02/15/24 10:44 Donepezil 10 Mg Tab PO 10 mg DAILY SHANNAN Administration Doxazosin Mesylate 2 mg 02/14/24 21:30 02/14/24 22:24 Doxazosin 2 Mg Tab PO 2 mg HS SHANNAN Administration Sodium Chloride 1,000 mls @ 75 mls/hr 02/14/24 20:00 02/14/24 21:59 Saline 0.9% IV 75 mls/hr .[id number] SHANNAN Administration Lamotrigine 200 mg 02/14/24 21:30 02/15/24 10:44 Lamotrigine 100 Mg Tab PO 200 mg BID SHANNAN Administration Lisinopril 10 mg 02/14/24 21:30 02/15/24 10:44 Lisinopril 10 Mg Tab PO 10 mg BID SHANNAN Administration Memantine 10 mg 02/14/24 21:30 02/15/24 10:44 Memantine 10 Mg Tab PO 10 mg BID SHANNAN Administration Naloxone HCl 0.2 mg 02/14/24 19:57 Naloxone 0.4 Mg/Ml 1 Ml Vial IV Q2M PRN Opioid Reversal Pantoprazole Sodium 40 mg 02/14/24 21:30 02/15/24 10:44 Pantoprazole 40 Mg Tablet PO 40 mg AC-BID SHANNAN Administration Paroxetine HCl 20 mg 02/15/24 09:00 02/15/24 10:44 Paroxetine 20 Mg Tab PO 20 mg DAILY SHANNAN Administration Intake and Output 02/14/24 02/15/24 02/15/24 22:59 06:59 14:59 Other: Weight 78.471 kg 02/14/24 17:43 02/14/24 17:43
[2024-02-15 13:13] LABS: Basophils # (A) 0.1 k/uL (0-0.2); Basophils % (A) 1 %; Eosinophils # (A) 0.2 k/uL (0-0.7); Eosinophils % (A) 3 %; HCT 41.6 % (39.0-53.0); HGB 13.6 gm/dL (13.0-17.5); Lymphocytes # (A) 1.6 k/uL (1.0-4.8); Lymphocytes % (A) 33 %; MCH 33.1 pg (25.0-35.0); MCHC 32.8 g/dL (31.0-37.0); Macrocytosis Slight; Mean Platelet Volume 7.1; Monocytes # (A) 0.3 k/uL (0-1.0); Monocytes % (A) 7 %; Neutrophils # (A) 2.5 k/uL (1.3-7.7); Neutrophils % (A) 52 %; Platelet Count 153 k/uL (150-450); RBC 4.11 m/uL (4.30-5.90); RDW 13.1 % (11.5-15.5); WBC 4.8 k/uL (3.8-10.6)
[2024-02-15 13:36] LABS: African American GFR (CKD) 69 (>60 ml/min/1.73 sqM); Anion Gap 7 mmol/L; Blood Urea Nitrogen 14 mg/dL (9-20); Calcium 9.4 mg/dL (8.4-10.2); Carbon Dioxide 24 mmol/L (22-30); Chloride 107 mmol/L (98-107); Glucose 89 mg/dL (74-99); Non-African American GFR(CKD) 60 (>60 ml/min/1.73 sqM); Potassium 3.9 mmol/L (3.5-5.1); Sodium 138 mmol/L (137-145)
--- NOTE | 2024-02-15 15:05 | P.CNNES ---
History of Present Illness Consult date: 02/15/24 Requesting physician: Chevy Baez Reason for Consult: SZ and Syncope History of Present Illness: Patient is a 78-year-old male with history of epilepsy, came to the hospital yesterday at 5:01 PM with breakthrough seizure. Patient and his provided with a history. Patient started having seizures about 10 or 15 years ago. 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 He had about 4-5 grand mal seizures in his lifetime. Patient was initially placed on Dilantin, which was getting difficult to control the levels. He was then switched to Lamictal for the last few years, and has been doing well on it. He has not had any seizure for the last 4 to 5 years. Patient is very compliant with medication, does not miss the dose of Lamictal 200 mg twice daily. Patient follows up with Dr. Hylton. Patient had breakthrough seizures yesterday. Patient and his were at their brother's house and he was sitting in the chair when he had a petit mall seizure. He could not hear, was completely out. He came to after about 15 to 20 seconds. Did not bite his tongue, or lost control of urine. His was driving him home, when he had a second seizure in the car. He passed out, eyes rolled up, and hands were shaking a little for 15 to 20 seconds. His drove him to the hospital. Patient has not had any seizure for last 4 to 5 years, although in July 2023, he was coming back from [place] when he got off the plane, he blacked out for a short while but did not have any seizure. He did not seek medical attention for that episode. Vital signs on arrival blood pressure 141/88, pulse is 73 temperature 97.6. Blood test shows normal CBC, PT PTT, normal CMP, troponin. CT head showed no acute process. Stable age-appropriate senescent changes. Small remote lacunar infarct in the left external capsule. I personally reviewed CT head, agree with the findings. EKG showed atrial flutter/tachycardia. Patient has been seen by cardiology recommend resuming his home cardiac medication. Patient denies any tobacco or any alcohol use, no marijuana. Denies diabetes. He does have hypertension. Patient lives with his . He does not use any assistive device. Review of Systems Constitutional: Denies chills, Denies fever Eyes: denies blurred vision, denies diplopia, denies pain, denies loss of vision Ears: deny: decreased hearing, ear discharge Ears, nose, mouth and throat: Reports headache (After Sx, none now), Denies sore throat, Denies vertigo Cardiovascular: Denies chest pain, Denies shortness of breath Respiratory: Denies cough, Denies excessive sputum Gastrointestinal: Denies abdominal pain, Denies diarrhea, Denies nausea, Denies vomiting Genitourinary: Denies dysuria, Denies incontinence Musculoskeletal: Reports neck pain, Denies low back pain Integumentary: Denies pruritus, Denies rash Neurological: Reports as per HPI Psychiatric: Reports depression, Denies anxiety Endocrine: Denies fatigue, Denies weight change Past Medical History Past Medical History: Coronary Artery Disease (CAD), Deep Vein Thrombosis (DVT), Hyperlipidemia, Hypertension, Renal Disease, Seizure Disorder Additional Past Medical History / Comment(s): PAD History of Any Multi-Drug Resistant Organisms: None Reported Past Surgical History: Appendectomy, Heart Catheterization With Stent, Joint Replacement, Orthopedic Surgery Additional Past Surgical History / Comment(s): kidney stents, fem-popx2, hydrocele surgery Past Anesthesia/Blood Transfusion Reactions: No Reported Reaction Date of Last Stent Placement:: 2012 Past Psychological History: No Psychological Hx Reported Smoking Status: Never smoker Past Alcohol Use History: Occasional Past Drug Use History: None Reported Medications and Allergies Home Medications Medication Instructions Recorded Confirmed Type Doxazosin [Cardura] 2 mg PO HS 01/14/15 02/14/24 History allopurinoL [Zyloprim] 100 mg PO DAILY 09/08/15 02/14/24 History PARoxetine HCL [Paxil] 20 mg PO DAILY 06/08/20 02/14/24 History Apixaban [Eliquis] 2.5 mg PO BID 02/14/24 02/14/24 History Atorvastatin [Lipitor] 20 mg PO HS 02/14/24 02/14/24 History Clopidogrel [Plavix] 75 mg PO DAILY 02/14/24 02/14/24 History Donepezil [Aricept] 10 mg PO DAILY 02/14/24 02/14/24 History HYDROcodone/APAP 5-325MG [[place] 1 tab PO Q6HR PRN 02/14/24 02/14/24 History 5-325] Memantine [Namenda] 10 mg PO BID 02/14/24 02/14/24 History Nitroglycerin Sl Tabs [Nitrostat] 0.4 mg SL Q5M PRN 02/14/24 02/14/24 History Pantoprazole [Protonix] 40 mg PO BID 02/14/24 02/14/24 History lamoTRIgine [LaMICtal] 200 mg PO BID 02/14/24 02/14/24 History lisinopriL [Zestril] 10 mg PO BID 02/14/24 02/14/24 History Allergies Allergy/AdvReac Type Severity Reaction Status Date / Time meperidine HCl [From Demerol] AdvReac Nausea & Verified 02/14/24 17:05 Vomiting Physical Examination - Vital Signs Vital Signs: Vital Signs Temp Pulse Resp BP Pulse Ox 02/15/24 13:00 73 20 148/102 96 02/15/24 10:43 64 18 143/90 98 02/15/24 10:00 71 18 130/86 97 02/15/24 08:00 59 L 17 102/70 97 02/15/24 07:00 40 L 11 L 105/70 02/15/24 06:05 63 16 105/70 95 02/15/24 06:00 71 11 L 118/78 02/15/24 05:00 72 14 110/68 02/15/24 04:00 72 19 127/64 02/15/24 03:23 98.1 F 72 16 124/64 95 02/15/24 03:00 70 15 123/79 94 L 02/15/24 02:00 53 L 13 123/79 95 02/15/24 01:07 68 17 120/82 95 02/15/24 00:00 71 15 152/90 95 02/14/24 23:00 71 17 163/111 95 02/14/24 22:00 73 17 168/89 97 02/14/24 21:00 81 15 159/137 96 02/14/24 20:00 73 19 165/100 96 02/14/24 19:00 71 16 165/99 98 02/14/24 18:15 66 17 160/97 94 L 02/14/24 17:02 97.6 F 73 18 141/88 97 Intake and Output 02/14/24 02/15/24 02/15/24 22:59 06:59 14:59 Other: Weight 78.471 kg Patient is an elderly male, very pleasant, in no acute distress. Patient is alert awake oriented to time place and person. Speech and language functions are normal. Patient can name and repeat very well. No aphasia or dysarthria. Attention, concentration and fund of knowledge is adequate. On cranial nerve examination, pupils are equal, round and reacting to light, visual mancera are full on confrontation, with no neglect on double simultaneous stimulation. Extraocular muscles are intact with no nystagmus. Face is symmetric, tongue protrudes to the midline. Palatal elevation and sensation normal, hearing and shoulder shrug normal, facial sensation normal. On muscle strength testing, there is no pronator drift and the strength is normal in arms and legs distally and proximally. Deep tendon reflexes are symmetric 2 at the biceps, 1 at the brachioradialis, 2+ at the knees, plantars are withdrawal bilaterally. Sensory to touch is equal with no neglect on double simultaneous stimulation. Cerebellar function showed no ataxia for [id number] testing. No dysdiadochokinesia. No ataxia for [id number] testing on either side. Tone and bulk of muscles normal. Gait deferred.. On general examination, there is no carotid bruit or murmur, S1-S2 audible. Chest is clear on consultation. Abdomen is soft nontender. No organomegaly, bowel sounds present. Peripheral pulses are present. No peripheral edema. Results - Laboratory Findings CBC and BMP: 02/15/24 12:37 02/15/24 12:37 Abnormal Lab Findings: Abnormal Labs 02/14/24 02/14/24 02/15/24 17:43 17:43 12:37 RBC 4.02 L 4.11 L MCV 101.0 H Creatinine 1.28 H Assessment and Plan Assessment: * History of epilepsy, came with breakthrough seizure. Exact cause of breakthrough seizure uncertain. Patient is very compliant with medication. No obvious provoking factor identified with testing. * Hypertension * History of atrial fibrillation, currently on Eliquis. * Coronary artery disease Plan: Patient had an EEG performed today, which was essentially normal awake and drowsy. Background was slightly suppressed, which appears nonspecific findings. No focal, lateralized or epileptiform activity was seen. Patient's breakthrough seizure is of unclear cause. No obvious provoking factors identified. He already has 2 of them since yesterday, therefore needs adjustment in his seizure medication. I discussed with patient about either increasing the dose of Lamictal, or adding another antiepileptic medication to the current regimen. Patient preferred increasing the dose of Lamictal. We will increase dose of Lamictal from 200 mg twice daily to 225 mg twice daily. He will be given an extra 25 mg tablet of Lamictal to be taken twice a day. I did order stat Lamictal level. The results can be followed up with primary physician/neurologist. Carotid Doppler revealed moderate calcified eccentric plaque involving the carotid bifurcation and proximal internal carotid arteries bilaterally, resulting in mild, less than 50% stenosis. No hemodynamically significant stenosis seen. No hemodynamically significant stenosis of the left ICA seen on the prior study is not reproduced on the current study. Antegrade flow in both vertebral arteries. Patient has history of atrial fibrillation, currently on Eliquis 2.5 mg twice daily and Plavix 75 mg daily. These will be continued. Cardiology has seen the patient, cleared for discharge. Patient informed of [place] state law of no driving unless seizure-free for 6 months, climbing ladders, operating dangerous machinery or unsupervised swimming. Neurologically clear for discharge. Thank you for the consult.
[2024-02-15] MEDS: lamoTRIgine 25 MG TAB PO ONE (15:31)
[2024-02-15] MEDS: lamoTRIgine 25 MG TAB PO SCH (21:24)
[2024-02-15] MEDS: METHYL SALICYLATE-MENTHOL OINT (3 OZ TUBE) TOPICAL SCH (21:27)
--- NOTE | 2024-02-16 15:00 | P.PN ---
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 Hylton. Patient gives history that he had 2 episodes where he became confused and had loss of consciousness. He states each episode lasted 15 seconds each. Prior to it, he felt nauseated and may be a little lightheaded. He denies any lightheadedness when he stands. He states he has not had a seizure activity in a couple years. He has been taking all of his medications as directed. Blood pressure 161/107, heart rate 73, pulse ox 96% on room air. Patient is seen today in the emergency center waiting for a bed on the observation unit. EKG: Atrial fibrillation Carotid ultrasound duplex moderate less than 50% stenosis bilaterally. CT of the brain no acute bleed or mass effect. Stable. Small remote lacunar infarct. Laboratory studies: WBC 4.6, hemoglobin 13.4. Electrolytes are normal. Creatinine 1.28. Troponin negative x 3. Home cardiac medications: Eliquis 2.5 mg twice daily, Lipitor 20 mg at bedtime, Plavix 75 mg daily, Cardura 2 mg at bedtime, lisinopril 10 mg twice daily, Nitrostat as needed. 02/15 Patient is seen today in follow-up. He denies having any new concerns. He was noted on telemetry during the night to be in the 30s and he did have pause 2.6 and 2.8 but it was while he was sleeping. Telemetry strips have been reviewed by Dr. Wilson and there is no indication for pacemaker implantation at this time. Physical examination: Gen: This is a 78-year-old male in no acute distress. VS: reviewed HEENT: Head is atraumatic, normocephalic. Pupils equal, round. Sclerae is anicteric. NECK: Supple. No JVD. LUNGS: Clear to auscultation. No wheezes or rhonchi. No intercostal retractions. HEART: Regular rate and rhythm. No murmur. ABDOMEN: Soft No tenderness. EXTREMITIES: No pedal edema. No calf tenderness. NEUROLOGICAL: Patient is awake, alert and oriented x3. Assessment: Syncopal episode x 2 most likely related to seizure, less likely to be cardiac related Bradycardia History of coronary artery disease status post multiple angioplasties and stent placement History of DVT Hypertension Hyperlipidemia Chronic kidney disease stage III Plan: Resume patient's home cardiac medications No need to obtain echocardiogram Patient is cleared for discharge from cardiology and may follow-up with his primary guest relations associate, Dr. Anderson, in 1 to 2 weeks. Patient has an appointment on Monday. Event monitor 14 days ordered. Thank you kindly for this consultation. Nurse practitioner note has been reviewed, I agree with documented findings and plan of care. Patient was seen and examined. Objective - Vital Signs Vital signs: Vital Signs Temp 97.6 F 02/16/24 07:00 Pulse 60 02/16/24 07:00 Resp 16 02/16/24 07:00 BP 110/67 02/16/24 07:00 Pulse Ox 94 L 02/16/24 07:00 FiO2 Intake & Output 02/15/24 02/16/24 02/16/24 18:59 06:59 18:59 Intake Total 118 400 Balance 118 400 Weight 78.471 kg Intake: Oral 118 400 Other: Voiding Method Toilet Toilet # Voids 1 - Labs CBC & Chem 7: 02/15/24 12:37 02/15/24 12:37 Labs: Abnormal Lab Results - Last 24 Hours (Table) 02/15/24 Range/Units 12:37 RBC 4.11 L (4.30-5.90) m/uL MCV 101.0 H (80.0-100.0) fL
[2024-02-16 15:23] LABS: Glucose,Whole Blood 93 mg/dL (70-110)
[2024-02-16] MEDS ORDERED: ONDANSETRON 4 MG/2 ML VIAL IVP PRN (16:48)
--- NOTE | 2024-02-16 17:51 | CA ---
Transthoracic Echo Report Name: Jared Fabian Age: 78 Gender: M : 1945 Exam Date: 02/16/2024 09:07 Exam Location: [facility] Ht (in): 68 Wt (lb): 173 Ordering Physician: Lizbet Farmer DO Attending/Referring Phys: [id number], Lizbet Farmer, Family Life Counselor Katie Tavarez, STANISLAW Procedure CPT: Indications: multiple syncopal episodes Cardiac Hx: Technical Quality: Fair Contrast 1: Total Dose (mL): Contrast 2: Total Dose (mL): MEASUREMENTS (Male / Female) Normal Values 2D ECHO LV Diastolic Diameter PLAX 5.2 cm 4.2 - 5.9 / 3.9 - 5.3 cm LV Systolic Diameter PLAX 3.8 cm IVS Diastolic Thickness 1.4 cm 0.6 - 1.0 / 0.6 - 0.9 cm LVPW Diastolic Thickness 1.3 cm 0.6 - 1.0 / 0.6 - 0.9 cm LV Relative Wall Thickness 0.5 LVOT Diameter 2.1 cm LA Volume 67.3 cm??? 18 - 58 / 22 - 52 cm??? LA Volume Index 34.5 cm???/m??? 16 - 28 cm???/m??? M-MODE Aortic Root Diameter MM 3.4 cm LA Systolic Diameter MM 4.6 cm LA Ao Ratio MM 1.4 DOPPLER AV Peak Velocity 115.0 cm/s AV Peak Gradient 5.3 mmHg AV Mean Velocity 78.4 cm/s AV Mean Gradient 3.0 mmHg AV Velocity Time Integral 25.8 cm LVOT Peak Velocity 57.6 cm/s LVOT Peak Gradient 1.3 mmHg LVOT Velocity Time Integral 13.1 cm LVOT Stroke Volume 45.4 cm??? LVOT Stroke Volume Index 23.6 ml/m??? LVOT Cardiac Index 1625.8 cm???/min???m??? AV Area Cont Eq vti 1.8 cm??? AV Area Cont Eq pk 1.7 cm??? Mitral E Point Velocity 103.0 cm/s Mitral A Point Velocity 52.4 cm/s Mitral E to A Ratio 2.0 MV Deceleration Time 169.0 ms LV E' Lateral Velocity 10.6 cm/s Mitral E to LV E' Lateral Ratio 9.7 LV E' Septal Velocity 10.8 cm/s Mitral E to LV E' Septal Ratio 9.5 FINDINGS Left Ventricle Moderately increased left ventricular wall thickness. Left ventricular cavity size normal. Grade 1 diastolic dysfunction. Reduced global left ventricular systolic function. Left ventricular ejection fraction is estimated at 45-50 %. Global longitudinal strain is reduced and estimated at -10.3%. Preserved apical GLS. indeterminate diastolic risk for dysfunction Right Ventricle Normal right ventricular size and function. Right Atrium Normal right atrial size. Left Atrium Mildly increased left atrial volume. Mildly increased left atrial area. Mitral Valve Structurally normal mitral valve. Mitral valve thickened. Mild mitral annular calcification. Trace mitral regurgitation. Aortic Valve Trileaflet aortic valve. Thickened aortic valve without stenosis. Trace aortic regurgitation. Tricuspid Valve Structurally normal tricuspid valve. Mild tricuspid regurgitation. Pulmonic Valve Structurally normal pulmonic valve. Pericardium No pericardial effusion. Aorta Normal size aortic root and proximal ascending aorta. CONCLUSIONS Left ventricular ejection fraction is estimated at 45-50 %. Reduced global left ventricular systolic function. Moderately increased left ventricular wall thickness. No significant valvular dysfunction Mild LA dilatation Normal RV size and function Previewed by: Dr Sammy Wilson (Electronically Signed) Final Date: 16 February 2024 17:50
--- NOTE | 2024-02-16 18:55 | P.PN ---
Subjective Progress Note Date: 02/16/24 HISTORY OF PRESENT ILLNESS: 78-year-old office patient with active medical history of coronary artery disease post angioplasty and stent placement many time, history of DVT, history of hypertension, hyperlipidemia, stage III chronic kidney disease, history of seizure disorders with last seizure activity in 2019 hospitalized for but apparently has been having episode on and off and different timing and variation with recent episode and is traveling to [place] had 1 seizure activity in the plane and landed in [place] and never seek any help happen a few months ago. Also patient is known to have peripheral arterial disease with seen Dr. Anderson psych coordinator at [facility] had multi procedure done on the lower extremity, he developed to have A-fib/a flutter with RVR was started on anticoagulation because of high chance and risk for fall and complication with a nticoagulation his cast shell grinder at [facility] decided to do watchman but a year and half ago during the procedure patient developed to have an acute DC ended up going to the [facility] and had an angioplasty and stent placement and they aborted doing the watchman at that time patient remained on anticoagulation since. The patient also has multiple other problems he does not show up in the office much with the [facility]. Apparently may show up at the emergency department late night 02/14/2024 for 2 syncopal episode patient was seen his [id number] when he felt nauseous and then passed out completely this lasted for few seconds only then was not feeling well decided to go home his was driving him home when he had another episode on the passenger side to become unresponsive and then he woke up and complaining of headache and nausea developed to have slight chest discomfort at the time. 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 Of a flutter at the time. Patient seeing Dr. Hylton neurology on more regular basis and he is on Lamictal 200 mg twice a day for seizure which apparently had a problem previously with Keppra and Dilantin and never stayed on it in the past. 02/16/2024: Patient felt much better in the morning, review or testing with neuro logy and cardiology no major abnormality, neurology EEG came back to be quite but negative but this feeling this is an outbreak seizure activity not controlled by Lamictal 200 mg daily and recommendation to increase the dose to 225 mg twice a day and not to start another new medication but keep that further discussion between patient and his neurologist as an outpatient. As wrapping things up to send patient home he developed to have few episode of pause on his heart monitor some of them to place second. Cardiology are alerted to the fact that he felt initially this is probably happening in the middle of the night with pulse rate dropping down to the 30 not a problem does not require any further attention but will require probably clinical research monitor for 7 days and to follow this as an outpatient with his cast shell grinder as well. Patient trying to get out of his bed felt extremely lightheaded dizzy and nauseous he became extremely lightheaded with his monitors off could not register his heart rhythm. Reattempt again after 1 hour become the same we decided to keep patient in the hospital overnight continue to watch him on clinical research monitor treated and see if he is having any further arrhythmia might require a pacemaker. REVIEW OF SYSTEMS: CONSTITUTIONAL: Well-developed no acute respiratory distress. EYES: No icterus sclerae, no conjunctivitis. EARS, NOSE, MOUTH, THROAT, and FACE: No sore throat, lymphadenopathy, carotid bruits or deformity. RESPIRATORY: No SOB cough or wheezes. CARDIOVASCULAR: No CP, Palpitation, PND, Orthopnea, or angina. GASTROINTESTINAL: No Abd pain, Nausea or vomiting, no Diarrhea or constipation, No GI Bleed, no distention or masses. GENITOURINARY: Negative for Hematuria or UTI, no kidney stones. INTEGUMENT/BREAST: Negative for any muscular injury with mild osteoarthritis.. HEMATOLOGIC/LYMPHATIC: Negative for bleed or purpura. MUSCULOSKELTAL: Negative for Myalgia or arthralgia. NEURLOGICAL: No LOC, Sz or syncope, blurred vision dizziness or abnormality.. BEHAVIORAL/PSYCH: Negative. ENDOCRINE: Negative. PHYSICAL EXAMINATION: General Appearance: Alert, cooperative, no distress, appears stated age. Neck HEENT: Supple, no lymphadenopathy, no thyroid enlargement, no carotid bruits. Lungs: Clear to auscultation without crackles or wheezes no rhonchi, no deformity. Chest Wall: Chest wall normal expansion with deep inspiration no tenderness and no deformity was found on exam, no costochondral pain or discomfort. Heart: Regular rate and rhythm, S1, S2 normal, no murmur, rub or gallop. Back: Symmetric, no curvature, ROM normal, no CVA tenderness. Abdomen: Soft, non-tender, bowel sounds active all four quadrants, no masses, no organomegaly. Extremities: Extremities normal, atraumatic, no cyanosis or edema. Pulses: 2+ and symmetric. Skin: Skin color, texture, tugor normal, no rashes or lesions. Neurologic: Alert oriented x3 cranial nerves II through XII intact, no motor deficit, no abnormal balance or gait. ASSESSMENT AND PLAN: _Multi syncopal episode: This is most likely still activating seizure despite being on Lamictal is not able to control his symptoms, EEG was normal decided to keep patient on Lamictal and increase the dose up to 225 mg twice a day. Second problem here probably arrhythmia with severe bradycardia and pauses might be part of the reason why patient is having symptoms and if that is truthfully become more symptomatic while he has been watching heart monitor patient might require pacemaker. Will continue to observe patient for 1 more night reconsult cardiology to see him again reviewed his heart monitor next 24 hours and make a decision by tomorrow. _Seizure with possible status seizure: This is probably still seizure activity despite being on Lamictal is not controlling symptoms EEG was done patient with neurology consult recommend to increase dose of his Lamictal up to 225 mg twice a day. _Atherosclerotic heart disease with multiple angioplasty and stent placement done by his cast shell grinder at [facility] in [place] last 1 was 2 years ago patient claims has not had any chest pain or angina last stress test was over 3 years ago. Repeat echo continue CK with troponin. _A-fib/a flutter with RVR: Did not require any beta-fady but still on anticoagulation, attempt to do Watchman over 2 years ago patient had complica tion developed heart attack during procedure did not go back to do anymore trial since. Not clear whether patient is having at this point severe bradycardia syndrome might require pacemaker. _Peripheral arterial disease post femoral-popliteal angioplasty and stent placement on both side has been doing better still have mild vascular claudication on and off he is remaining on Plavix blood pressure has been well- controlled and still on atorvastatin. _Hypertension: Resume lisinopril 10 mg twice a day along with Cardura 2 mg at bedtime. _Anticoagulation: Patient still on Plavix along with Eliquis, his Eliquis been giving for previous history of DVT to my knowledge nonsustained A-fib/a flutter resume Eliquis and continue Plavix for now. _Arrhythmia: His EKG showed? If a flutter does not look like it there is no documentation of A-fib in the past and patient had severe bradycardia on beta- fady to watch little bit more carefully. _Hyperlipidemia: Remain on atorvastatin 20 mg a day. _Benign prostatic hypertrophy: Still on Cardura. _Chronic degenerative disc disease: Patient is not on any narcotic or muscle relaxer using Tylenol on as-needed basis. _Carotid stenosis: Carotid ultrasound came back with mild stenosis does not require any intervention. _Stage IIIa chronic kidney disease: Chronic no change his GFR on testing still at 54. _GI prophylaxis: Patient will be on Pepcid 20 mg daily. _Discussion: Despite trying to send patient home after testing done he became again symptomatic 2 times in the afternoon on 02/16/2024, will give him in the hospital for overnight watch his heart on monitor and see if he has any further symptoms have cardiology review his rhythm strip and monitor again for possibility of needing pacemaker. Objective - Vital Signs Vital signs: Vital Signs Temp 98.4 F 02/16/24 03:56 Pulse 59 L 02/16/24 03:56 Resp 15 02/16/24 03:56 BP 106/53 02/16/24 03:56 Pulse Ox 95 02/16/24 03:56 FiO2 Intake & Output 02/15/24 02/15/24 02/16/24 06:59 18:59 06:59 Intake Total 118 Balance 118 Weight 78.471 kg Intake: Oral 118 Other: Voiding Method Toilet Toilet # Voids 1 - Labs CBC & Chem 7: 02/15/24 12:37 02/15/24 12:37 Labs: Abnormal Lab Results - Last 24 Hours (Table) 02/15/24 Range/Units 12:37 RBC 4.11 L (4.30-5.90) m/uL MCV 101.0 H (80.0-100.0) fL
[2024-02-17 08:19] VITALS: RESP 15; TEMP 98.1
[2024-02-17 08:46] VITALS: BP 129/74; PULSE 80
--- NOTE | 2024-02-17 11:05 | P.PN ---
Subjective Progress Note Date: 02/16/24 Patient was seen for a follow-up. Patient is ready for discharge. Patient states that he is tolerating the higher dose of Lamictal 225 mg twice a day well. No side effects. Objective - Vital Signs Vital signs: Vital Signs Temp 98 F 02/16/24 14:02 Pulse 75 02/16/24 14:02 Resp 19 02/16/24 14:31 BP 159/79 02/16/24 14:02 Pulse Ox 97 02/16/24 14:02 FiO2 Intake & Output 02/15/24 02/16/24 02/16/24 18:59 06:59 18:59 Intake Total 118 940 Balance 118 940 Weight 78.471 kg Intake: Oral 118 940 Other: Voiding Method Toilet Toilet Toilet # Voids 1 3 - Exam Examination completely nonfocal. Mentation normal. Patient is getting ready f or discharge. - Labs CBC & Chem 7: 02/15/24 12:37 02/15/24 12:37 Assessment and Plan Assessment: * History of epilepsy, came with breakthrough seizure. Exact cause of breakthrough seizure uncertain. Patient is very compliant with medication. No obvious provoking factor identified with testing. * Hypertension * History of atrial fibrillation, currently on Eliquis. * Coronary artery disease Plan: EEG performed 02/15/2024 was essentially normal awake and drowsy. Background was slightly suppressed, which appears nonspecific findings. No focal, lateralized or epileptiform activity was seen. Patient's breakthrough seizure is of unclear cause. No obvious provoking factor s identified. He already has 2 of them since yesterday, therefore needs adjustment in his seizure medication. I discussed with patient about either increasing the dose of Lamictal, or adding another antiepileptic medication to the current regimen. Patient preferred increasing the dose of Lamictal. We will increase dose of Lamictal from 200 mg twice daily to 225 mg twice daily. He will be given an extra 25 mg tablet of Lamictal to be taken twice a day. I did order stat Lamictal level. The results can be followed up with primary physician/neurologist. Carotid Doppler revealed moderate calcified eccentric plaque involving the carotid bifurcation and proximal internal carotid arteries bilaterally, resulting in mild, less than 50% stenosis. No hemodynamically significant stenosis seen. No hemodynamically significant stenosis of the left ICA seen on the prior study is not reproduced on the current study. Antegrade flow in both vertebral arteries. Patient has history of atrial fibrillation, currently on Eliquis 2.5 mg twice daily and Plavix 75 mg daily. These will be continued. Cardiology has seen the patient, cleared for discharge. Patient informed of [place] state law of no driving unless seizure-free for 6 months, climbing ladders, operating dangerous machinery or unsupervised swimming. Neurologically clear for discharge. Recommend patient follow up with neurologi st in 1-2 weeks.
--- NOTE | 2024-02-17 11:12 | P.PN ---
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 Hylton. Patient gives history that he had 2 episodes where he became confused and had loss of consciousness. He states each episode lasted 15 seconds each. Prior to it, he felt nauseated and may be a little lightheaded. He denies any lightheadedness when he stands. He states he has not had a seizure activity in a couple years. He has been taking all of his medications as directed. Blood pressure 161/107, heart rate 73, pulse ox 96% on room air. Patient is seen today in the emergency center waiting for a bed on the observation unit. EKG: Atrial fibrillation Carotid ultrasound duplex moderate less than 50% stenosis bilaterally. CT of the brain no acute bleed or mass effect. Stable. Small remote lacunar infarct. Laboratory studies: WBC 4.6, hemoglobin 13.4. Electrolytes are normal. Creatinine 1.28. Troponin negative x 3. Home cardiac medications: Eliquis 2.5 mg twice daily, Lipitor 20 mg at bedtime, Plavix 75 mg daily, Cardura 2 mg at bedtime, lisinopril 10 mg twice daily, Nitrostat as needed. 02/15 Patient is seen today in follow-up. He denies having any new concerns. He was noted on telemetry during the night to be in the 30s and he did have pause 2.6 and 2.8 but it was while he was sleeping. Telemetry strips have been reviewed by Dr. Wilson and there is no indication for pacemaker implantation at this time. 02/16 Yesterday, patient was prepared for discharge and cleared by cardiology but when patient attempted to get out of bed he was feeling lightheaded, dizzy nauseated and returned back to bed due to extreme symptoms. He was not on the monitor at that time. He attempted to get out of bed again an hour later and he had the same thing happened. It was decided the patient would stay overnight and continue cardiac monitoring. Patient states he also had vomiting which started and dizziness followed. He states he feels well this morning. Denies nausea and vomiting. Patient states that he has been up to the bathroom without symptoms. BP obtained supine 128/72, standing 117/76. Patient ambulated in the [facility] without symptoms, and no concern on telemetry. He denies any chest pain or shortness of breath. Patient has event monitor on. Physical examination: Gen: This is a 78-year-old male in no acute distress. VS: reviewed HEENT: Head is atraumatic, normocephalic. Pupils equal, round. Sclerae is anicteric. NECK: Supple. No JVD. LUNGS: Clear to auscultation. No wheezes or rhonchi. No intercostal retractions. HEART: Regular rate and rhythm. No murmur. ABDOMEN: Soft No tenderness. EXTREMITIES: No pedal edema. No calf tenderness. NEUROLOGICAL: Patient is awake, alert and oriented x3. Assessment: Syncopal episode x 2 most likely related to seizure, less likely to be cardiac related Bradycardia with pauses 2.6-2.8 seconds Persistent atrial fibrillation History of coronary artery disease status post multiple angioplasties and stent placement History of DVT Hypertension Hyperlipidemia Chronic kidney disease stage III Nausea, vomiting and dizziness episode 02/15, resolved. Negative orthostatics this morning. Plan: Resume patient's home cardiac medications No need to obtain echocardiogram Patient is cleared for discharge from cardiology and may follow-up with his primary tool polishing machine operator, Dr. Anderson. Patient has an appointment on Monday. Event monitor [address] Recommend changing lisinopril to once daily and monitor BP at home. Nurse practitioner note has been reviewed, I agree with documented findings and plan of care. Patient was seen and examined. Objective - Vital Signs Vital signs: Vital Signs Temp 98.1 F 02/17/24 07:35 Pulse 72 02/17/24 07:35 Resp 15 02/17/24 07:35 BP 94/51 02/17/24 07:35 Pulse Ox 95 02/17/24 07:35 FiO2 Intake & Output 02/16/24 02/17/24 02/17/24 18:59 06:59 18:59 Intake Total 940 Balance 940 Intake: Oral 940 Other: Voiding Method Toilet # Voids 3 1 - Labs CBC & Chem 7: 02/15/24 12:37 02/15/24 12:37
--- NOTE | 2024-02-17 12:35 | P.DS ---
Providers Date of admission: 02/14/24 19:57 Expected date of discharge: 02/17/24 Attending physician: Chevy Baez Consults: 02/14/24 19:57 Consult Physician Urgent Consulting Provider: [facility] Consult Reason/Comments: multiple syncopal episodes Do you want consulting provider notified?: Yes 02/14/24 22:45 Consult Physician Routine Consulting Provider: King Dai Consult Reason/Comments: SZ and Syncope Do you want consulting provider notified?: Yes, Notify in am Primary care physician: Chevy Baez [facility] Course: Discharge diagnoses; _Multi syncopal episode Bradycardia: EEG was normal decided to keep patient on Lamictal and increase the dose up to 225 mg twice a day. Continue Lamictal Hold AV vinny blocking agent Cardiology following, Patient was seen by cardiology, they recommended decreasing dose of lisinopril to 10 mg daily. Cardiology cleared the patient for discharge _Seizure with possible status seizure: This is probably still seizure activity despite being on Lamictal is not controlling symptoms EEG was done patient with neurology consult recommend to increase dose of his Lamictal up to 225 mg twice a day. _Atherosclerotic heart disease with multiple angioplasty and stent placement done by his plant floor automation manager at [facility] in [place] last 1 was 2 years ago patient claims has not had any chest pain or angina last stress test was over 3 years ago. Cardiology following _A-fib/a flutter with RVR: Did not require any beta-fady but still on anticoagulation. _Peripheral arterial disease post femoral-popliteal angioplasty and stent placement on both side has been doing better still have mild vascular claudication on and off he is remaining on Plavix blood pressure has been well- controlled and still on atorvastatin. _Hypertension: Continue lisinopril and Cardura, dose of lisinopril decreased to 10 mg daily _Anticoagulation: Patient still on Plavix along with Eliquis, his Eliquis been giving for previous history of DVT _Hyperlipidemia: Remain on atorvastatin 20 mg a day. _Benign prostatic hypertrophy: Still on Cardura. _Chronic degenerative disc disease: Patient is not on any narcotic or muscle relaxer using Tylenol on as-needed basis. _Carotid stenosis: Carotid ultrasound came back with mild stenosis does not require any intervention. _Stage IIIa chronic kidney disease: Chronic no change his GFR on testing still at 54. Hospital course; 78-year-old office patient with active medical history of coronary artery disease post angioplasty and stent placement many time, history of DVT, history of hypertension, hyperlipidemia, stage III chronic kidney disease, history of seizure disorders with last seizure activity in 2019 hospitalized for but ap parently has been having episode on and off and different timing and variation with recent episode and is traveling to [place] had 1 seizure activity in the plane and landed in [place] and never seek any help happen a few months ago. Also patient is known to have peripheral arterial disease with seen Dr. Anderson vision rehabilitation therapist at [facility] had multi procedure done on the lower extremity, he developed to have A-fib/a flutter with RVR was started on anticoagulation because of high chance and risk for fall and complication with anticoagulation his plant floor automation manager at [facility] decided to do watchman but a year and half ago during the procedure patient developed to have an acute [place] ended up going to the Assistant Clinical Nurse Manager and had an angioplasty and stent placement and they aborted doing the watchman at that time patient remained on anticoagulation since. The patient also has multiple other problems he does not show up in the office much with the claimed [facility]. Apparently may show up at the emergency department late night 02/14/2024 for 2 syncopal episode patient was seen his [id number] when he felt nauseous and then passed out completely this lasted for few seconds only then was not feeling well decided to go home his was driving him home when he had another episode on the passenger side to become unresponsive and then he woke up and co mplaining of headache and nausea developed to have slight chest discomfort at the time. 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 Of a flutter at the time. Patient seeing Dr. Hylton neurology on more regular basis and he is on Lamictal 200 mg twice a day for seizure which apparently had a problem previously with Keppra and Dilantin and never stayed on it in the past. 02/16/2024: Patient felt much better in the morning, review or testing with neurology and cardiology no major abnormality, neurology EEG came back to be quite but negative but this feeling this is an outbreak seizure activity not controlled by Lamictal 200 mg daily and recommendation to increase the dose to 225 mg twice a day and not to start another new medication but keep that further discussion between patient and his neurologist as an outpatient. As wrapping things up to send patient home he developed to have few episode of pause on his heart monitor some of them to place second. Cardiology are alerted to the fact that he felt initially this is probably happening in the middle of the night with pulse rate dropping down to the 30 not a problem does not require any further attention but will require probably finger lift operator for 7 days and to follow this as an outpatient with his plant floor automation manager as well. Patient trying to get out of his bed felt extremely lightheaded dizzy and nauseous he became extremely lightheaded with his monitors off could not register his heart rhythm. Reattempt again after 1 hour become the same we decided to keep patient in the hospital overnight continue to watch him on finger lift operator treated and see if he is having any further arrhythmia might require a pacemaker. 02/16. Dr. Dennis took over care. Patient was seen by cardiology, they recommended decreasing dose of lisinopril to 10 mg daily. Cardiology cleared the patient for discharge PHYSICAL EXAMINATION: GENERAL: The patient is alert and oriented x3, not in any acute distress. Well developed, well nourished. HEENT: Pupils are round and equally reacting to light. EOMI. No scleral icterus. No conjunctival pallor. Normocephalic, atraumatic. No pharyngeal erythema. No thyromegaly. CARDIOVASCULAR: S1 and S2 present. No murmurs, rubs, or gallops. PULMONARY: Chest is clear to auscultation, no wheezing or crackles. ABDOMEN: Soft, nontender, nondistended, normoactive bowel sounds. No palpable organomegaly. MUSCULOSKELETAL: No joint swelling or deformity. EXTREMITIES: No cyanosis, clubbing, or pedal edema. NEUROLOGICAL: Gross neurological examination did not reveal any focal deficits. SKIN: No rashes. Dictation was produced using [employer] dictation software. please excuse any grammatical, word or spelling errors. Patient Condition at Discharge: Stable Plan - Discharge Summary New Discharge Prescriptions: New lamoTRIgine [LaMICtal] 25 mg PO BID #60 tab Continue Doxazosin [Cardura] 2 mg PO HS allopurinoL [Zyloprim] 100 mg PO DAILY PARoxetine HCL [Paxil] 20 mg PO DAILY Pantoprazole [Protonix] 40 mg PO BID Nitroglycerin Sl Tabs [Nitrostat] 0.4 mg SL Q5M PRN PRN Reason: Chest Pain Donepezil [Aricept] 10 mg PO DAILY Memantine [Namenda] 10 mg PO BID lamoTRIgine [LaMICtal] 200 mg PO BID Clopidogrel [Plavix] 75 mg PO DAILY Apixaban [Eliquis] 2.5 mg PO BID Atorvastatin [Lipitor] 20 mg PO HS HYDROcodone/APAP 5-325MG [Elim 5-325] 1 tab PO Q6HR PRN PRN Reason: Pain Changed lisinopriL [Zestril] 10 mg PO DAILY #30 tab Discharge Medication List Doxazosin [Cardura] 2 mg PO HS 01/14/15 [History] allopurinoL [Zyloprim] 100 mg PO DAILY 09/08/15 [History] PARoxetine HCL [Paxil] 20 mg PO DAILY 06/08/20 [History] Apixaban [Eliquis] 2.5 mg PO BID 02/14/24 [History] Atorvastatin [Lipitor] 20 mg PO HS 02/14/24 [History] Clopidogrel [Plavix] 75 mg PO DAILY 02/14/24 [History] Donepezil [Aricept] 10 mg PO DAILY 02/14/24 [History] HYDROcodone/APAP 5-325MG [Elim 5-325] 1 tab PO Q6HR PRN 02/14/24 [History] Memantine [Namenda] 10 mg PO BID 02/14/24 [History] Nitroglycerin Sl Tabs [Nitrostat] 0.4 mg SL Q5M PRN 02/14/24 [History] Pantoprazole [Protonix] 40 mg PO BID 02/14/24 [History] lamoTRIgine [LaMICtal] 200 mg PO BID 02/14/24 [History] lamoTRIgine [LaMICtal] 25 mg PO BID #60 tab 02/16/24 [Rx] lisinopriL [Zestril] 10 mg PO DAILY #30 tab 02/17/24 [Rx] Follow up Appointment(s)/Referral(s): Chevy Baez MD [Primary Care Provider] - 1-2 days Vijay Hylton DO [STAFF PHYSICIAN] - 1 Week Amadeo Anderson MD [REFERRING] - 1 Week Patient Instructions/Handouts: Seizure/Epilepsy Discharge Instructions & Follow-Up Activity/Diet/Wound Care/Special Instructions: FOLLOW UP PREVIOUSLY SCHEDULED WITH DR ANDERSON ON . RETURN TO ER OR CALL EMS FOR WORSENING SYMPTOMS, PROBLEMS, OR CONCERNS. FOLLOW [place] DRIVINGSEIZURE PROTOCOLS. NO DRIVING UNLESS SEIZURE FREE FOR 6 MONTHS, NO CLIMBING LADDERS, NO OPERATING DANGEROUS MACHINERY, AND NO UNSUPERVISED SWIMMING. Discharge Disposition: HOME SELF-CARE
[2024-02-18] MEDS ORDERED: lisinopriL 10 MG TAB PO SCH (09:00)
== END 2024-02-17 13:50 | disposition home or self-care (01) ==
LOC: EC 17:01 → 6NMEDSUR 19:57
PROVIDERS: ADMIT Internal Medicine Geriatric Medicine; ATTEND Internal Medicine Geriatric Medicine
DX: R55 Syncope and collapse (principal); R11.2 Nausea with vomiting, unspecified; I25.10 Atherosclerotic heart disease of native coronary artery without angina pectoris; I48.92 Unspecified atrial flutter; G40.409 Other generalized epilepsy and epileptic syndromes, not intractable, without status epilepticus; I12.9 Hypertensive chronic kidney disease with stage 1 through stage 4 chronic kidney disease, or unspecified chronic kidney disease; I48.19 Other persistent atrial fibrillation; N18.31 Chronic kidney disease, stage 3a; M10.9 Gout, unspecified; E78.5 Hyperlipidemia, unspecified; Z95.5 Presence of coronary angioplasty implant and graft; Z91.81 History of falling; Z86.73 Personal history of transient ischemic attack (TIA), and cerebral infarction without residual deficits; Z86.718 Personal history of other venous thrombosis and embolism; Z79.899 Other long term (current) drug therapy; Z79.82 Long term (current) use of aspirin; Z79.02 Long term (current) use of antithrombotics/antiplatelets; Z79.01 Long term (current) use of anticoagulants
CPT/HCPCS: 96360; 96361 ×2; 99285; 36415; 95816; 93005; 93306; 93270; 80053; 80048; 80175; 84484 ×2; 85025 ×2; 85610; 85730; 93880; 70450; G0378 ×4

== ENCOUNTER → 2024-09-02 | Outpatient (CLI) | payer MEDICARE, OTHER ==
--- NOTE | 2024-09-02 13:19 | XR ---
EXAMINATION TYPE: XR cervical spine comp DATE OF EXAM: 09/02/2024 1:00 PM COMPARISON: 01/14/2015 CLINICAL INDICATION: Male, 79 years old with history of M48.00 SPINAL STENOSIS, SITE UNSPECIFIED; PHH , pain TECHNIQUE: The cervical spine was imaged in frontal, lateral, odontoid and bilateral oblique. FINDINGS: The osseous structures show normal alignment without evidence of an acute fracture. There are osteoph ytes noted throughout the cervical spine on the anterior and lateral aspects of the vertebral bodies. The intervertebral disk spaces are narrowed at multiple levels. Pedicles are intact. Soft tissues a re within normal limits. The odontoid appears intact. IMPRESSION: 1. No fracture or dislocation. 2. Moderate degenerative disc disease changes of the cervical spine. [facility], , 09/02/2024 1:17 PM
== END | disposition home or self-care (01) ==
LOC: RADXRMAIN 12:41
PROVIDERS: ATTEND Internal Medicine Geriatric Medicine
DX: M48.02 Spinal stenosis, cervical region (principal); M50.30 Other cervical disc degeneration, unspecified cervical region
CPT/HCPCS: 72050

== ENCOUNTER → 2025-03-17 | Outpatient (CLI) | payer MEDICARE, OTHER ==
[2025-03-17 20:00] LABS: Basophils # (A) 0.06 X 10*3/uL (0.00-0.10); Basophils % (A) 1.0 %; Eosinophils # (A) 0.22 X 10*3/uL (0.04-0.35); Eosinophils % (A) 3.8 %; HCT 39.3 % (39.6-50.0); HGB 13.0 g/dL (13.0-17.0); Immature Grans, Automated 0.20 %; Lymphocytes # (A) 2.00 X 10*3/uL (0.90-5.00); Lymphocytes % (A) 34.5 %; MCH 31.8 pg (27.0-32.0); MCHC 33.1 g/dL (32.0-37.0); MCV 96.1 FL (80.0-97.0); Monocytes # (A) 0.42 X 10*3/uL (0.20-1.00); Monocytes % (A) 7.3 %; NRBC Per 100 WBC 0 X 10*3/uL (0.00-0.01); Neutrophils # (A) 3.08 X 10*3/uL (1.80-7.70); Neutrophils % (A) 53.2 %; Platelet Count 151 X 10*3/uL (140-440); RBC 4.09 X 10*6/uL (4.40-5.60); RDW 12.7 % (11.5-14.5); WBC 5.79 X 10*3/uL (4.50-10.00)
[2025-03-17 20:33] LABS: ALT 20 U/L (10-49); AST 28 U/L (14-35); Albumin 4.4 g/dL (3.8-4.9); Albumin/Globulin Ratio 2.44 Ratio (1.60-3.17); Alkaline Phosphatase 128 U/L (41-126); Anion Gap 12.00 mmol/L (4.00-12.00); BUN/Creat Ratio 14.67 Ratio (12.00-20.00); Blood Urea Nitrogen 22.0 mg/dL (9.0-27.0); Calcium 9.2 mg/dL (8.7-10.3); Carbon Dioxide 24.0 mmol/L (21.6-31.8); Chloride 105 mmol/L (96-109); Cholesterol 132.00 mg/dL (0.00-200.00); Globulin 1.8 g/dL (1.6-3.3); Glucose 104 mg/dL (70-110); HDL Cholesterol 63.60 mg/dL (40.00-60.00); LDL Cholesterol,Calculated 53.6 mg/dL (0.0-131.0); Potassium 4.4 mmol/L (3.5-5.5); Sodium 141 mmol/L (135-145); Total Protein 6.2 g/dL (6.2-8.2); Triglycerides 73.80 mg/dL (0.00-149.00); Uric Acid 5.0 mg/dL (3.7-8.7); VLDL Calculation 14.76 mg/dL (5.00-40.00)
== END | disposition home or self-care (01) ==
LOC: LABWHC1 14:37
PROVIDERS: ATTEND Internal Medicine Geriatric Medicine
DX: I25.10 Atherosclerotic heart disease of native coronary artery without angina pectoris (principal); N18.31 Chronic kidney disease, stage 3a; R73.9 Hyperglycemia, unspecified
CPT/HCPCS: 36415; 80053; 80061; 83036; 84443; 84550; 85025